=== PATIENT | male | born 1960 | race African-American/Black ===

== ENCOUNTER → 2016-09-19 | Outpatient (CLI) | payer MEDICARE, OTHER ==
--- NOTE | 2016-09-19 18:09 | CT ---
EXAMINATION TYPE: CT chest wo con DATE OF EXAM: 09/19/2016 2:31 PM COMPARISON: NONE HISTORY: Shortness of breath CT DLP: 566.10 mGycm, Automated exposure control for dose reduction was used. CONTRAST: None TECHNIQUE: Axial images were obtained at 1 mm thick sections at 10 mm intervals. This will limit po rtions of the examination which may not be visualized within the [id number]. Images were obtained in the prone and supine views. FINDINGS: Portion of the thyroid visualized is normal. No suspicious lung nodules or focal infiltrat es are present. There is a small to moderate right pleural effusion. No bronchiectasis is evident. No suspicious consolidations or chronic bronchitis. There appears to be some borderline lymphadenopathy within the mediastinum and pretracheal space tyler suring 1.0 cm. Additional adenopathy is suspected, however, due to the grainy artifact and lack of in travenous contrast this is somewhat limited in evaluation. Consider additional evaluation with standa rd CT chest with contrast. The ascending aorta diameter at the level of the main pulmonary artery is 4.4 cm. The main pulmonar y artery diameter at the bifurcation is 3.[address] sections are obtained through the upper abdomen. Upper abdomen is essentially nondiagnosti c due to artifact. IMPRESSIONS: 1. Enlarged mediastinal adenopathy felt to be incompletely evaluated. Contrast CT of the standard tiffanie st is recommended for additional evaluation. 2. Small to moderate right pleural effusion
== END | disposition home or self-care (01) ==
LOC: RADCTMAIN 14:09
PROVIDERS: ATTEND Internal Medicine
DX: J90 Pleural effusion, not elsewhere classified (principal)
CPT/HCPCS: 71250

== ENCOUNTER → 2016-10-04 | Outpatient (CLI) | payer MEDICARE, OTHER | END | disposition home or self-care (01) | LOC: RADPETMAIN 10:20 | PROVIDERS: ATTEND Internal Medicine | DX: Z53.9 Procedure and treatment not carried out, unspecified reason (principal) ==

== ENCOUNTER → 2016-10-21 | Outpatient (CLI) | payer MEDICARE, OTHER ==
[2016-10-21 16:27] LABS: Calcium 9.9 mg/dL (8.4-10.2); Magnesium 2.1 mg/dL (1.6-2.3); Phosphorous 3.7 mg/dL (2.5-4.5); Potassium 5.1 mmol/L (3.5-5.1); Uric Acid 11.8 mg/dL (3.5-8.5)
[2016-10-21 16:38] LABS: Anisocytosis Slight; Basophils # (A) 0.1 k/uL (0-0.2); Basophils % (A) 1 %; CH 23.4; CHCM 28.6; Eosinophils # (A) 0.3 k/uL (0-0.7); Eosinophils % (A) 4 %; HCT 37.3 % (39.0-53.0); HDW 3.23; Hypochromasia Marked; Luc # (Auto) 0.27; Luc % (Auto) 4; Lymphocytes # (A) 1.5 k/uL (1.0-4.8); Lymphocytes % (A) 22 %; MCH 24.2 pg (25.0-35.0); MCHC 29.4 g/dL (31.0-37.0); MCV 82.2 fL (80.0-100.0); Mean Platelet Volume 6.6; Monocytes # (A) 0.7 k/uL (0-1.0); Monocytes % (A) 10 %; Neutrophils # (A) 4.2 k/uL (1.3-7.7); Neutrophils % (A) 60 %; RBC 4.53 m/uL (4.30-5.90); RDW 17.9 % (11.5-15.5); WBC 7.1 k/uL (3.8-10.6); WBC (Perox) 7.25
[2016-10-21 17:33] LABS: Appearance,Urine Clear (Clear); Bilirubin,Urine Negative (Negative); Glucose,Urine (UA) Negative (Negative); Ketones,Urine Negative (Negative); Leukocyte Esterase,Urine Negative (Negative); Mucus,Urine Rare /hpf; Nitrite,Urine Negative (Negative); PH, Urine 5.5 (5.0-8.0); Particle Count 2302; Protein,Urine 1+ (Negative); RBC,Urine 1 /hpf (0-5); Specific Gravity,Urine 1.013 (1.001-1.035); UA Billing (MACRO vs. MICRO) MICRO; WBC,Urine 1 /hpf (0-5)
[2016-10-21 17:39] LABS: Creatinine,Urine Random 217.3 mg/dL
== END | disposition home or self-care (01) ==
LOC: LABWHC1 15:57
PROVIDERS: ATTEND Nurse Practitioner Family
DX: N18.3 Chronic kidney disease, stage 3 (moderate) (principal); N39.0 Urinary tract infection, site not specified; E83.39 Other disorders of phosphorus metabolism; R80.9 Proteinuria, unspecified
CPT/HCPCS: 36415; 80048; 81001; 82570; 82728; 83540; 83550; 83735; 84100; 84156; 84550; 85025

== ENCOUNTER → 2016-11-01 | Outpatient (CLI) | payer MEDICARE, OTHER | LOC: RADPETMAIN 07:04 | PROVIDERS: ATTEND Internal Medicine | DX: Z53.9 Procedure and treatment not carried out, unspecified reason (principal) ==

== ENCOUNTER → 2016-11-15 | Outpatient (CLI) | payer MEDICARE, OTHER ==
--- NOTE | 2016-11-15 17:44 | PE ---
EXAMINATION TYPE: PET CT fusion skull to thigh DATE OF EXAM: 11/15/2016 CLINICAL HISTORY: Right-sided lung cancer initial staging study per order TECHNIQUE: Following the intravenous administration of 15.87 mCi of F-18 FDG, whole body images are performed from the skull base to the midthigh. Images are reviewed on the computer in the coronal, axial, and sagittal planes. Reconstructed rotating images are created on independent workstation and reviewed on the computer. A non-contrast CT is performed in conjunction with the PET scan. COMPARISON: CT chest September 19, 2016. FINDINGS: Exam is suboptimal secondary to patient's large body habitus. SKULL BASE AND NECK: No suspicious hypermetabolic uptake is seen in the neck to suggest neck or supr aclavicular adenopathy. CHEST, MEDIASTINUM, AND HILAR REGION: No suspicious hypermetabolic uptake is seen in the thorax. There is redemonstration of significant cardiomegaly with global bilateral atrial and ventricular dil atation. There is background moderate emphysematous change with small right greater than left pleural effusion, right-sided effusion is diminished in size from prior. There are borderline prominent and slightly enlarged enlarged mediastinal lymph nodes, for reference right paratracheal lymph node measu res 1.5 x 1.2 cm on axial image 84 with minimal hypermetabolic uptake. There is prominent prevascular lymph node on axial image 73 with minimal hypermetabolic uptake. ABDOMEN AND PELVIS: No suspicious hypermetabolic uptake is seen in the abdomen or pelvis. OSSEOUS STRUCTURES: No suspicious hypermetabolic uptake is seen in the osseous structures. OTHER CT: There is multilevel spurring throughout the spine. There are disc herniations and facet art hropathy contributing to multilevel spinal canal stenosis. Dextroconvex scoliosis of thoracic spine i s seen. Sclerotic focus left C2 vertebra without abnormal hypermetabolic uptake is seen. Sclerosis ar eas in the cervical spine is felt to reflect product of degenerative change. Artifact related to patient's adjacent arms makes evaluation suboptimal. Main pulmonary artery is dilated at 4.0 cm on axial image 91, CT findings consistent with underlying pulmonary artery hypertension. Dependent density in gallbladder is consistent with small stones or gallbladder sludge. Infrarenal IVC filter is present. Scattered diverticula most prominent in left and sigmoid colon are noted. Prominent right-sided pelvic phlebolith is present on axial image 225. IMPRESSION: No suspicious hypermetabolic uptake is seen to suggest active malignancy. Slightly enlarg ed mediastinal lymph nodes show minimal increase uptake, max SUV is less than 3.5 making in nonneopla stic range. Does patient has biopsy-proven carcinoma?
== END | disposition home or self-care (01) ==
LOC: RADPETMAIN 14:18
PROVIDERS: ATTEND Internal Medicine
DX: R59.0 Localized enlarged lymph nodes (principal)
CPT/HCPCS: 78815; A9552

== ENCOUNTER → 2017-06-02 | Outpatient (CLI) | payer MEDICARE, OTHER ==
[2017-06-02 11:23] LABS: Anisocytosis Slight; Basophils # (A) 0.1 k/uL (0-0.2); Basophils % (A) 1 %; Eosinophils # (A) 0.5 k/uL (0-0.7); Eosinophils % (A) 8 %; HCT 43.6 % (39.0-53.0); HGB 13.5 gm/dL (13.0-17.5); Hypochromasia Slight; Lymphocytes % (A) 15 %; MCHC 30.9 g/dL (31.0-37.0); Macrocytosis Slight; Mean Platelet Volume 7.3; Monocytes # (A) 0.6 k/uL (0-1.0); Monocytes % (A) 8 %; Neutrophils # (A) 4.5 k/uL (1.3-7.7); Neutrophils % (A) 66 %; Platelet Count 183 k/uL (150-450); RDW 17.5 % (11.5-15.5); WBC 6.8 k/uL (3.8-10.6)
[2017-06-02 11:24] LABS: Appearance,Urine Clear (Clear); Bilirubin,Urine Negative (Negative); Blood,Urine Trace (Negative); Color,Urine Yellow; Glucose,Urine (UA) Negative (Negative); Hyaline Casts,Urine 14 /lpf (0-2); Ketones,Urine Negative (Negative); Leukocyte Esterase,Urine Negative (Negative); Mucus,Urine Rare /hpf; Nitrite,Urine Negative (Negative); Protein,Urine Trace (Negative); RBC,Urine 3 /hpf (0-5); Specific Gravity,Urine 1.008 (1.001-1.035); Squamous Epithelial Cell,Urine <1 /hpf (0-4); WBC,Urine 1 /hpf (0-5)
[2017-06-02 11:37] LABS: Magnesium 2.2 mg/dL (1.6-2.3); Phosphorus 4.3 mg/dL (2.5-4.5); Potassium 4.3 mmol/L (3.5-5.1); Uric Acid 5.8 mg/dL (3.5-8.5)
[2017-06-02 11:38] LABS: Creatinine,Urine Random 102.7 mg/dL
[2017-06-02 16:47] LABS: Iron Saturation 16.67 (15.00-50.00)
== END | disposition home or self-care (01) ==
LOC: LABWHC1 10:29
PROVIDERS: ATTEND Nurse Practitioner Family
DX: N18.3 Chronic kidney disease, stage 3 (moderate) (principal); R80.9 Proteinuria, unspecified
CPT/HCPCS: 36415; 80048; 81001; 82570; 82728; 83540; 83550; 83735; 84100; 84156; 84550; 85025

== ENCOUNTER → 2017-08-31 | Outpatient (CLI) | payer MEDICARE, OTHER ==
[2017-08-31 16:35] LABS: Anisocytosis Slight; Basophils % (A) 1 %; Eosinophils # (A) 0.3 k/uL (0-0.7); Eosinophils % (A) 5 %; HCT 42.4 % (39.0-53.0); HGB 13.2 gm/dL (13.0-17.5); Hypochromasia Slight; Lymphocytes # (A) 0.9 k/uL (1.0-4.8); Lymphocytes % (A) 15 %; MCH 30.3 pg (25.0-35.0); MCHC 31.1 g/dL (31.0-37.0); MCV 97.7 fL (80.0-100.0); Macrocytosis Slight; Mean Platelet Volume 8.2; Monocytes # (A) 0.5 k/uL (0-1.0); Monocytes % (A) 8 %; Neutrophils % (A) 70 %; Platelet Count 177 k/uL (150-450); RBC 4.35 m/uL (4.30-5.90); RDW 16.5 % (11.5-15.5); WBC 5.7 k/uL (3.8-10.6)
[2017-08-31 16:52] LABS: Albumin 4.1 g/dL (3.5-5.0); Calcium 9.8 mg/dL (8.4-10.2); Magnesium 2.6 mg/dL (1.6-2.3); Phosphorus 3.7 mg/dL (2.5-4.5); Potassium 5.3 mmol/L (3.5-5.1); Total Bilirubin 2.8 mg/dL (0.2-1.3); Total Protein 7.3 g/dL (6.3-8.2); Uric Acid 6.3 mg/dL (3.5-8.5)
[2017-09-01 00:48] LABS: Iron Saturation 16.25 (15.00-50.00)
[2017-09-01 00:58] LABS: Vitamin D 25 Hydroxy 38.2 ng/mL (30.0-100.0)
[2017-09-01 01:18] LABS: Parathyroid Hormone Intact 157.3 pg/mL (14.0-72.0)
== END | disposition home or self-care (01) ==
LOC: LABWHC1 15:53
PROVIDERS: ATTEND Nurse Practitioner Family
DX: N39.0 Urinary tract infection, site not specified (principal); M10.9 Gout, unspecified; D63.1 Anemia in chronic kidney disease; N18.3 Chronic kidney disease, stage 3 (moderate); E55.9 Vitamin D deficiency, unspecified; E21.3 Hyperparathyroidism, unspecified
CPT/HCPCS: 36415; 80053; 82306; 82728; 83540; 83550; 83735; 83970; 84100; 84550; 85025

== ENCOUNTER → 2017-10-22 | Outpatient (CLI) | payer MEDICARE, OTHER ==
[2017-10-22 13:40] LABS: Anisocytosis Slight; Basophils % (A) 0 %; Eosinophils # (A) 0.2 k/uL (0-0.7); Eosinophils % (A) 4 %; Lymphocytes # (A) 0.7 k/uL (1.0-4.8); Lymphocytes % (A) 12 %; MCH 31.6 pg (25.0-35.0); MCHC 31.8 g/dL (31.0-37.0); MCV 99.2 fL (80.0-100.0); Macrocytosis Slight; Mean Platelet Volume 6.8; Monocytes # (A) 0.4 k/uL (0-1.0); Monocytes % (A) 6 %; Neutrophils # (A) 4.5 k/uL (1.3-7.7); Neutrophils % (A) 76 %; Platelet Count 153 k/uL (150-450); RBC 4.44 m/uL (4.30-5.90); RDW 17.9 % (11.5-15.5)
[2017-10-22 13:46] LABS: Appearance,Urine Clear (Clear); Bilirubin,Urine Negative (Negative); Blood,Urine Moderate (Negative); Color,Urine Yellow; Glucose,Urine (UA) Negative (Negative); Hyaline Casts,Urine 4 /lpf (0-2); Ketones,Urine Negative (Negative); Leukocyte Esterase,Urine Negative (Negative); Nitrite,Urine Negative (Negative); PH, Urine 5.5 (5.0-8.0); Protein,Urine Trace (Negative); RBC,Urine 28 /hpf (0-5); Specific Gravity,Urine 1.008 (1.001-1.035); WBC,Urine 1 /hpf (0-5)
[2017-10-22 13:54] LABS: Albumin 4.2 g/dL (3.5-5.0); Calcium 9.2 mg/dL (8.4-10.2); Magnesium 2.2 mg/dL (1.6-2.3); Phosphorus 3.5 mg/dL (2.5-4.5); Potassium 4.1 mmol/L (3.5-5.1); Total Bilirubin 2.7 mg/dL (0.2-1.3); Total Protein 7.4 g/dL (6.3-8.2); Uric Acid 4.5 mg/dL (3.5-8.5)
[2017-10-22 18:56] LABS: Vitamin D 25 Hydroxy 27.3 ng/mL (30.0-100.0)
[2017-10-22 19:08] LABS: Iron Saturation 30.42 (15.00-50.00)
[2017-10-22 19:24] LABS: Parathyroid Hormone Intact 175.4 pg/mL (14.0-72.0)
== END | disposition home or self-care (01) ==
LOC: LABWHC1 13:12
PROVIDERS: ATTEND Nurse Practitioner Family
DX: N39.0 Urinary tract infection, site not specified (principal); M10.9 Gout, unspecified; E83.39 Other disorders of phosphorus metabolism; N18.3 Chronic kidney disease, stage 3 (moderate)
CPT/HCPCS: 36415; 80053; 81001; 82306; 82728; 83540; 83550; 83735; 83970; 84100; 84550; 85025

== ENCOUNTER → 2018-01-27 | Outpatient (CLI) | payer MEDICARE, OTHER ==
[2018-01-27 11:48] LABS: Basophils % (A) 1 %; Eosinophils # (A) 0.2 k/uL (0-0.7); Eosinophils % (A) 7 %; HCT 43.2 % (39.0-53.0); HGB 13.8 gm/dL (13.0-17.5); Lymphocytes % (A) 28 %; MCV 100.3 fL (80.0-100.0); Macrocytosis Slight; Mean Platelet Volume 7.6; Monocytes # (A) 0.4 k/uL (0-1.0); Monocytes % (A) 12 %; Neutrophils # (A) 1.8 k/uL (1.3-7.7); Neutrophils % (A) 50 %; Platelet Count 165 k/uL (150-450); RBC 4.31 m/uL (4.30-5.90); RDW 15.5 % (11.5-15.5); WBC 3.5 k/uL (3.8-10.6)
[2018-01-27 11:54] LABS: Albumin 4.1 g/dL (3.5-5.0); Calcium 9.1 mg/dL (8.4-10.2); Magnesium 2.1 mg/dL (1.6-2.3); Phosphorus 4.1 mg/dL (2.5-4.5); Potassium 4.5 mmol/L (3.5-5.1); Total Bilirubin 1.8 mg/dL (0.2-1.3); Total Protein 7.7 g/dL (6.3-8.2)
[2018-01-27 12:08] LABS: Appearance,Urine Clear (Clear); Bilirubin,Urine Negative (Negative); Blood,Urine Large (Negative); Color,Urine Yellow; Glucose,Urine (UA) Negative (Negative); Ketones,Urine Negative (Negative); Leukocyte Esterase,Urine Negative (Negative); Mucus,Urine Rare /hpf; Nitrite,Urine Negative (Negative); PH, Urine 5.5 (5.0-8.0); Protein,Urine 1+ (Negative); RBC,Urine 38 /hpf (0-5); WBC,Urine 1 /hpf (0-5)
[2018-01-27 18:13] LABS: Parathyroid Hormone Intact 171.2 pg/mL (14.0-72.0)
[2018-01-27 18:42] LABS: Iron Saturation 10.4 (15.00-50.00)
== END | disposition home or self-care (01) ==
LOC: LABWHC1 10:16
PROVIDERS: ATTEND Nurse Practitioner Family
DX: N18.3 Chronic kidney disease, stage 3 (moderate) (principal); D63.1 Anemia in chronic kidney disease; E55.9 Vitamin D deficiency, unspecified; E21.3 Hyperparathyroidism, unspecified; M10.9 Gout, unspecified; N39.0 Urinary tract infection, site not specified
CPT/HCPCS: 36415; 80053; 81001; 82728; 83540; 83550; 83735; 83970; 84100; 84550; 85025

== ENCOUNTER → 2018-09-07 | Outpatient (CLI) | payer MEDICARE, OTHER ==
[2018-09-07 11:55] LABS: Basophils # (A) 0.1 k/uL (0-0.2); Basophils % (A) 1 %; Eosinophils # (A) 0.4 k/uL (0-0.7); Eosinophils % (A) 5 %; HCT 48.2 % (39.0-53.0); HGB 15.3 gm/dL (13.0-17.5); Lymphocytes # (A) 1.3 k/uL (1.0-4.8); Lymphocytes % (A) 16 %; MCH 31.8 pg (25.0-35.0); MCHC 31.7 g/dL (31.0-37.0); MCV 100.3 fL (80.0-100.0); Macrocytosis Slight; Mean Platelet Volume 7.1; Monocytes # (A) 0.4 k/uL (0-1.0); Monocytes % (A) 5 %; Neutrophils # (A) 5.7 k/uL (1.3-7.7); Neutrophils % (A) 71 %; Platelet Count 160 k/uL (150-450); RBC 4.81 m/uL (4.30-5.90); RDW 15.4 % (11.5-15.5); WBC 8.1 k/uL (3.8-10.6)
[2018-09-07 12:22] LABS: Appearance,Urine Clear (Clear); Bilirubin,Urine Negative (Negative); Blood,Urine Trace (Negative); Color,Urine Yellow; Glucose,Urine (UA) Negative (Negative); Hyaline Casts,Urine 1 /lpf (0-2); Ketones,Urine Negative (Negative); Leukocyte Esterase,Urine Negative (Negative); Mucus,Urine Rare /hpf; Nitrite,Urine Negative (Negative); PH, Urine 5.5 (5.0-8.0); Protein,Urine 2+ (Negative); RBC,Urine 2 /hpf (0-5); Specific Gravity,Urine 1.009 (1.001-1.035); Urobilinogen,Urine <2.0 mg/dL (<2.0); WBC,Urine 1 /hpf (0-5)
[2018-09-07 16:56] LABS: Parathyroid Hormone Intact 168.7 pg/mL (14.0-72.0)
[2018-09-07 17:36] LABS: Iron Saturation 27.6 (15.00-50.00)
[2018-09-07 17:37] LABS: Anion Gap 9.4 mmol/L (4.00-12.00); Calcium 9.1 mg/dL (8.7-10.3); Carbon Dioxide 23.6 mmol/L (21.6-31.8); Phosphorus 3.9 mg/dL (2.4-5.1); Potassium 4.3 mmol/L (3.5-5.5); Uric Acid 3.7 mg/dL (3.7-8.7)
[2018-09-07 17:43] LABS: Vitamin D 25 Hydroxy 25.5 ng/mL (30.0-100.0)
[2018-09-07 17:59] LABS: Creatinine,Urine Random 52.5 mg/dL
[2018-09-07 18:04] LABS: Total Protein,Urine Random 119.4 mg/dL (0.0-13.5)
== END | disposition home or self-care (01) ==
LOC: LABWHC1 11:07
PROVIDERS: ATTEND Internal Medicine Nephrology
DX: E83.39 Other disorders of phosphorus metabolism (principal); N39.0 Urinary tract infection, site not specified; N25.81 Secondary hyperparathyroidism of renal origin; N18.3 Chronic kidney disease, stage 3 (moderate)
CPT/HCPCS: 36415; 80048; 81001; 82040; 82306; 82570; 82728; 83540; 83550; 83735; 83970; 84100; 84156; 84550; 85025

== ENCOUNTER → 2019-01-21 | Outpatient (CLI) | payer MEDICARE, OTHER ==
[2019-01-21 12:12] LABS: Basophils # (A) 0.2 k/uL (0-0.2); Basophils % (A) 2 %; Eosinophils # (A) 0.3 k/uL (0-0.7); Eosinophils % (A) 3 %; Lymphocytes # (A) 1.6 k/uL (1.0-4.8); Lymphocytes % (A) 16 %; MCH 32.4 pg (25.0-35.0); MCHC 33.4 g/dL (31.0-37.0); MCV 97.1 fL (80.0-100.0); Monocytes # (A) 0.7 k/uL (0-1.0); Monocytes % (A) 7 %; Neutrophils # (A) 7.3 k/uL (1.3-7.7); Neutrophils % (A) 71 %; Platelet Count 186 k/uL (150-450); RBC 4.63 m/uL (4.30-5.90); RDW 13.9 % (11.5-15.5); WBC 10.3 k/uL (3.8-10.6)
[2019-01-21 12:34] LABS: Appearance,Urine Clear (Clear); Bilirubin,Urine Negative (Negative); Blood,Urine Negative (Negative); Color,Urine Yellow; Glucose,Urine (UA) Negative (Negative); Ketones,Urine Negative (Negative); Leukocyte Esterase,Urine Negative (Negative); Mucus,Urine Rare /hpf; Nitrite,Urine Negative (Negative); PH, Urine 5.5 (5.0-8.0); Protein,Urine 1+ (Negative); RBC,Urine 1 /hpf (0-5); Specific Gravity,Urine 1.013 (1.001-1.035); Urobilinogen,Urine <2.0 mg/dL (<2.0); WBC,Urine 1 /hpf (0-5)
[2019-01-21 18:43] LABS: African American GFR (CKD) 35.5 (60.0-200.0); Albumin 4.6 g/dL (3.80-4.90); Anion Gap 11.1 mmol/L (4.00-12.00); BUN/Creat Ratio 20.87 Ratio (12.00-20.00); Calcium 9.8 mg/dL (8.7-10.3); Carbon Dioxide 20.9 mmol/L (21.6-31.8); Magnesium 2.1 mg/dL (1.5-2.4); Phosphorus 4.2 mg/dL (2.4-5.1); Uric Acid 7.4 mg/dL (3.7-8.7)
[2019-01-21 18:45] LABS: Iron Saturation 41.81 (15.00-50.00)
[2019-01-21 18:53] LABS: Vitamin D 25 Hydroxy 17.6 ng/mL (30.0-100.0)
[2019-01-21 19:40] LABS: Creatinine,Urine Random 115.2 mg/dL
[2019-01-21 19:42] LABS: Total Protein,Urine Random 48.7 mg/dL (0.0-13.5)
== END | disposition home or self-care (01) ==
LOC: LABWHC1 11:10
PROVIDERS: ATTEND Internal Medicine Nephrology
DX: N18.3 Chronic kidney disease, stage 3 (moderate) (principal); D50.9 Iron deficiency anemia, unspecified; N25.81 Secondary hyperparathyroidism of renal origin
CPT/HCPCS: 36415; 80048; 81001; 82040; 82306; 82570; 82728; 83540; 83550; 83735; 83970; 84100; 84156; 84550; 85025

== ENCOUNTER → 2019-04-06 | Outpatient (CLI) | payer MEDICARE, OTHER ==
[2019-04-06 21:35] LABS: Dog Dander IgE <0.10 kU/L
[2019-04-06 21:37] LABS: Alternaria alternata IgE <0.10 kU/L; Aspergillus fumagatus IgE <0.10 kU/L; Cladosporian herbarum IgE <0.10 kU/L; Cockroach IgE <0.10 kU/L
[2019-04-06 21:38] LABS: Birch IgE <0.10 kU/L; Elm IgE <0.10 kU/L; Maple (Box Elder) IgE <0.10 kU/L; Oak IgE <0.10 kU/L; Ragweed,Common IgE <0.10 kU/L
[2019-04-06 21:40] LABS: Red Top (Bentgrass) IgE <0.10 kU/L
[2019-04-06 21:41] LABS: Cat Epith & Dander IgE <0.10 kU/L; Dermato. farinae IgE 0.38 kU/L; Egg White IgE <0.10 kU/L
[2019-04-06 21:42] LABS: Codfish IgE <0.10 kU/L; Peanut IgE <0.10 kU/L
[2019-04-06 21:43] LABS: Clam IgE <0.10 kU/L; Shrimp IgE <0.10 kU/L; Soybean IgE <0.10 kU/L
[2019-04-06 21:44] LABS: Scallop IgE <0.10 kU/L; Walnut IgE (Food) <0.10 kU/L
== END | disposition home or self-care (01) ==
LOC: LABWHC1 12:43
PROVIDERS: ATTEND Family Medicine
DX: L30.9 Dermatitis, unspecified (principal); T78.40XA Allergy, unspecified, initial encounter
CPT/HCPCS: 36415; 82785; 86003

== ENCOUNTER → 2019-06-02 | Outpatient (CLI) | payer MEDICARE, OTHER ==
--- NOTE | 2019-06-02 13:44 | CT ---
EXAMINATION TYPE: CT abdomen pelvis wo con DATE OF EXAM: 06/02/2019 HISTORY: ascites per order. Pain and swelling for [address] DLP: 1126 mGycm. Automated Exposure Control for Dose Reduction was Utilized. TECHNIQUE: CT scan of the abdomen and pelvis is performed without oral or IV contrast. COMPARISON: Head CT November 15, 2016 FINDINGS: Within the limitations of a non-contrast study, the following observations are made. LUNG BASES: Patchy linear scarring and/or atelectasis in both bases. Mild cardiomegaly redemonstrated . LIVER/GB: Small dependent calcified gallstone now identified. Liver is heterogeneous without definiti ve mass. Occasional punctate calcification. PANCREAS: No significant abnormality is seen. SPLEEN: Scattered punctate calcifications throughout the spleen. Liver and splenic findings are consi stent with product of old granulomatous disease. ADRENALS: No significant abnormality is seen. KIDNEYS: Cortical thinning in both kidneys. Scattered simple appearing thin-walled cyst. No hydroneph rosis bilaterally. Findings consistent with product of chronic medical renal disease. BOWEL: Suboptimal evaluation of bowel without enteric contrast. Stomach poorly distended and thus sub optimally evaluated. No suspicious small and large bowel dilatation. Diverticula throughout left and sigmoid colon with occasional diverticula remainder of colon. No CT evidence for acute diverticulitis . GENITAL ORGANS: Prostate gland mildly enlarged bulging and bladder base consistent with BPH. LYMPH NODES: No greater than 1cm abdominal or pelvic lymph nodes are appreciated. OSSEOUS STRUCTURES: Moderate disc space narrowing and vacuum disc phenomenon L4-L5 level. Persistent levoconvex scoliosis centered lower thoracic spine. Multilevel facet arthropathy in the mid to lower lumbar spine. OTHER: Small sized fat-containing umbilical hernia near vertical scar midline mid to lower abdomen. S table infrarenal IVC filter. Mild to moderate calcified plaque of the aorta extends into branch vesse ls. There is suspected trace ascites and/or mild fat stranding in the lower abdomen just anterior to aortic bifurcation. Large left-sided scrotal hydrocele noted. IMPRESSION: 1. No significant ascites on current study with improvement from 2017 PET/CT noted. 2. Other chronic findings as detailed above.
== END | disposition home or self-care (01) ==
LOC: RADCTMAIN 11:59
PROVIDERS: ATTEND Family Medicine
DX: K80.20 Calculus of gallbladder without cholecystitis without obstruction (principal); K76.89 Other specified diseases of liver; K31.89 Other diseases of stomach and duodenum; K57.32 Diverticulitis of large intestine without perforation or abscess without bleeding; N40.0 Benign prostatic hyperplasia without lower urinary tract symptoms; R18.8 Other ascites; K42.9 Umbilical hernia without obstruction or gangrene; N43.3 Hydrocele, unspecified
CPT/HCPCS: 74176

== ENCOUNTER 2020-02-03 22:29 | Emergency (ER) | payer MEDICARE, OTHER ==
[2020-02-03 22:55] VITALS: TEMP 99.3
--- NOTE | 2020-02-03 23:26 | ED ---
SOB HPI - General Chief Complaint: Shortness of Breath Stated Complaint: MILAD - COPD, CHF Time Seen by Provider: 02/03/20 22:58 Source: patient, family Mode of arrival: wheelchair Limitations: no limitations - History of Present Illness Initial Comments: This patient's 59-year-old man who presents with a couple of days of cough and dyspnea. The patient has history of CHF and of COPD. He believes that this feels more consistent with his COPD exacerbation. Patient denies fever or chills. No chest pain. No leg pain or swelling. No change in urination or bowel movements. No dark tarry or bloody stools. MD Complaint: shortness of breath, cough -: days(s) Severity scale (1-10): 0 Improves With: nothing Worsens With: nothing Known History Of: COPD, congestive heart failure Associated Symptoms: denies other symptoms, cough Treatments Prior to Arrival: bronchodilator - Related Data Home Oxygen Therapy: No Home Medications Medication Instructions Recorded Confirmed Cinacalcet [Sensipar] 30 mg PO TUFR 04/02/15 03/02/18 Furosemide [Lasix] 80 mg PO DAILY 04/02/15 03/02/18 allopurinoL [Zyloprim] 300 mg PO DAILY 04/02/15 03/02/18 Albuterol Nebulized (Conc) 2.5 mg INHALATION QID 12/04/16 03/02/18 [Ventolin Nebulized (Conc)] Aspirin [Adult Low Dose Aspirin EC] 81 mg PO DAILY 12/04/16 03/02/18 Gabapentin [Neurontin] 300 mg PO DAILY 12/04/16 03/02/18 Loratadine [Claritin] 10 mg PO DAILY PRN 12/04/16 03/02/18 Beclomethasone Dipropionate [Qvar 1 puff BID 03/13/17 03/02/18 80 mcg] Cinacalcet HCl [Sensipar] 30 mg PO DIRECTED 03/13/17 03/02/18 Fluticasone Nasal Jackman [Flonase 1 spray NASAL DIRECTED PRN 03/13/17 03/02/18 Nasal Jackman] HYDROcodone/APAP 10-325MG [[place] 1 tab PO QID 03/13/17 03/02/18 10-325] Previous Rx's Medication Instructions Recorded Azithromycin [Zithromax Z-pack (6 250 mg PO DIRECTED #6 tab 02/04/20 tabs)] predniSONE [Deltasone] 20 mg PO BID #8 tab 02/04/20 Allergies Allergy/AdvReac Type Severity Reaction Status Date / Time propoxyphene napsylate Allergy Abdominal Verified 02/03/20 22:55 [From Darvocet-N 100] Pain Review of Systems ROS Statement: Those systems with pertinent positive or pertinent negative responses have been documented in the HPI. ROS Other: All systems not noted in ROS Statement are negative. Constitutional: Denies: fever, chills, weakness Respiratory: Reports: cough, dyspnea. Denies: wheezes Cardiovascular: Denies: chest pain, palpitations, orthopnea, edema, syncope Gastrointestinal: Denies: abdominal pain, nausea, vomiting Genitourinary: Denies: dysuria, hematuria Musculoskeletal: Denies: back pain Skin: Denies: rash Neurological: Denies: headache, weakness, numbness Past Medical History Past Medical History: Heart Failure, COPD, Deep Vein Thrombosis (DVT), GERD/Reflux, Hypertension, Pneumonia, Renal Disease, Sleep Apnea/CPAP/BIPAP Additional Past Medical History / Comment(s): RETRO PERITONEAL FIBROSIS, HX OF DVT 2002, GOUT, SLEEP APNEA- NO MACHINE AT THIS TIME., STATES PNEUMONIA SINCE MARCH 2016- WEARS OXYGEN AT 2 LITERS. , STATES LEFT KIDNEY NOT FUNCTIONING, RIGHT KIDNEY STENT. STATES CYSTS ON KIDNEYS. (SEES DR SINGH) , BACK PAIN. , USES CANE. History of Any Multi-Drug Resistant Organisms: None Reported Past Surgical History: Joint Replacement Additional Past Surgical History / Comment(s): TOTAL LEFT KNEE, SERA FILTER (RIGHT GROIN) Past Anesthesia/Blood Transfusion Reactions: No Reported Reaction Past Psychological History: Anxiety Smoking Status: Never smoker Past Alcohol Use History: None Reported Past Drug Use History: None Reported - Past Family History Mother Family Medical History: No Reported History General Exam Limitations: no limitations General appearance: alert, in no apparent distress Head exam: Present: atraumatic, normocephalic Eye exam: Present: normal appearance. Absent: scleral icterus, conjunctival injection ENT exam: Present: normal oropharynx Neck exam: Present: normal inspection Respiratory exam: Present: wheezes, rhonchi. Absent: respiratory distress, rales, stridor Cardiovascular Exam: Present: regular rate, normal rhythm, normal heart sounds. Absent: systolic murmur, diastolic murmur, rubs, gallop GI/Abdominal exam: Present: soft. Absent: distended, tenderness, guarding, rebound, rigid Extremities exam: Present: normal inspection, normal capillary refill. Absent: pedal edema, calf tenderness Back exam: Present: normal inspection. Absent: CVA tenderness (R), CVA tenderness (L) Neurological exam: Present: alert Skin exam: Present: warm, dry, intact, normal color. Absent: rash Course Vital Signs 02/03/20 02/03/20 02/04/20 22:51 23:15 00:00 Temperature 99.3 F Pulse Rate 61 81 Respiratory 34 H 22 16 Rate Blood Pressure 109/69 124/77 O2 Sat by Pulse 98 100 Oximetry 02/04/20 02/04/20 01:00 02:00 Temperature Pulse Rate 92 90 Respiratory 18 18 Rate Blood Pressure 128/79 117/75 O2 Sat by Pulse 98 98 Oximetry Medical Decision Making - Medical Decision Making Patient's 59 -year-old man presenting with cough and dyspnea. Workup here does reveal leukocytosis and mild lactic acid. Patient started on medication I was recommending admission to ensure that he is having improvement, the patient refuses that and states that he will follow-up. He will return should there be any recurrence of symptoms are worsening in anyway. Patient understands there is risks of leaving. - Lab Data Result diagrams: 02/03/20 23:21 02/03/20 23:21 Lab Results 02/03/20 02/03/20 02/03/20 Range/Units 23:21 23:21 23:21 WBC 17.6 H (3.8-10.6) k/uL RBC 4.55 (4.30-5.90) m/uL Hgb 14.0 (13.0-17.5) gm/dL Hct 43.4 (39.0-53.0) % MCV 95.3 (80.0-100.0) fL MCH 30.7 (25.0-35.0) pg MCHC 32.2 (31.0-37.0) g/dL RDW 14.7 (11.5-15.5) % Plt Count 185 (150-450) k/uL Neutrophils % 88 % Lymphocytes % 5 % Monocytes % 5 % Eosinophils % 1 % Basophils % 0 % Neutrophils # 15.6 H (1.3-7.7) k/uL Lymphocytes # 0.9 L (1.0-4.8) k/uL Monocytes # 0.8 (0-1.0) k/uL Eosinophils # 0.2 (0-0.7) k/uL Basophils # 0.0 (0-0.2) k/uL PT 11.8 (9.0-12.0) sec INR 1.2 H (<1.2) APTT 34.5 H (22.0-30.0) sec Sodium 133 L (137-145) mmol/L Potassium 5.2 H (3.5-5.1) mmol/L Chloride 104 (98-107) mmol/L Carbon Dioxide 20 L (22-30) mmol/L Anion Gap 9 mmol/L BUN 32 H (9-20) mg/dL Creatinine 2.60 H (0.66-1.25) mg/dL Est GFR (CKD-EPI)AfAm 30 (>60 ml/min/1.73 sqM) Est GFR (CKD-EPI)NonAf 26 (>60 ml/min/1.73 sqM) Glucose 133 H (74-99) mg/dL Lactic Ac Sepsis Rflx Plasma Lactic Acid Hakeem (0.7-2.0) mmol/L Calcium 9.8 (8.4-10.2) mg/dL Total Bilirubin 1.4 H (0.2-1.3) mg/dL AST 26 (17-59) U/L ALT 15 (4-49) U/L Alkaline Phosphatase 79 (38-126) U/L Troponin I (0.000-0.034) ng/mL NT-Pro-B Natriuret Pep pg/mL Total Protein 7.5 (6.3-8.2) g/dL Albumin 4.3 (3.5-5.0) g/dL Urine Color Urine Appearance (Clear) Urine pH (5.0-8.0) Ur Specific [place] (1.001-1.035) Urine Protein (Negative) Urine Glucose (UA) (Negative) Urine Ketones (Negative) Urine Blood (Negative) Urine Nitrite (Negative) Urine Bilirubin (Negative) Urine Urobilinogen (<2.0) mg/dL Ur Leukocyte Esterase (Negative) Serum Alcohol mg/dL 02/03/20 02/03/20 02/03/20 Range/Units 23:21 23:21 23:21 WBC (3.8-10.6) k/uL RBC (4.30-5.90) m/uL Hgb (13.0-17.5) gm/dL Hct (39.0-53.0) % MCV (80.0-100.0) fL MCH (25.0-35.0) pg MCHC (31.0-37.0) g/dL RDW (11.5-15.5) % Plt Count (150-450) k/uL Neutrophils % % Lymphocytes % % Monocytes % % Eosinophils % % Basophils % % Neutrophils # (1.3-7.7) k/uL Lymphocytes # (1.0-4.8) k/uL Monocytes # (0-1.0) k/uL Eosinophils # (0-0.7) k/uL Basophils # (0-0.2) k/uL PT (9.0-12.0) sec INR (<1.2) APTT (22.0-30.0) sec Sodium (137-145) mmol/L Potassium (3.5-5.1) mmol/L Chloride (98-107) mmol/L Carbon Dioxide (22-30) mmol/L Anion Gap mmol/L BUN (9-20) mg/dL Creatinine (0.66-1.25) mg/dL Est GFR (CKD-EPI)AfAm (>60 ml/min/1.73 sqM) Est GFR (CKD-EPI)NonAf (>60 ml/min/1.73 sqM) Glucose (74-99) mg/dL Lactic Ac Sepsis Rflx Plasma Lactic Acid Hakeem 2.8 H* (0.7-2.0) mmol/L Calcium (8.4-10.2) mg/dL Total Bilirubin (0.2-1.3) mg/dL AST (17-59) U/L ALT (4-49) U/L Alkaline Phosphatase (38-126) U/L Troponin I 0.025 (0.000-0.034) ng/mL NT-Pro-B Natriuret Pep 1720 pg/mL Total Protein (6.3-8.2) g/dL Albumin (3.5-5.0) g/dL Urine Color Urine Appearance (Clear) Urine pH (5.0-8.0) Ur Specific [place] (1.001-1.035) Urine Protein (Negative) Urine Glucose (UA) (Negative) Urine Ketones (Negative) Urine Blood (Negative) Urine Nitrite (Negative) Urine Bilirubin (Negative) Urine Urobilinogen (<2.0) mg/dL Ur Leukocyte Esterase (Negative) Serum Alcohol mg/dL 02/04/20 02/04/20 02/04/20 Range/Units 00:03 00:13 01:30 WBC (3.8-10.6) k/uL RBC (4.30-5.90) m/uL Hgb (13.0-17.5) gm/dL Hct (39.0-53.0) % MCV (80.0-100.0) fL MCH (25.0-35.0) pg MCHC (31.0-37.0) g/dL RDW (11.5-15.5) % Plt Count (150-450) k/uL Neutrophils % % Lymphocytes % % Monocytes % % Eosinophils % % Basophils % % Neutrophils # (1.3-7.7) k/uL Lymphocytes # (1.0-4.8) k/uL Monocytes # (0-1.0) k/uL Eosinophils # (0-0.7) k/uL Basophils # (0-0.2) k/uL PT (9.0-12.0) sec INR (<1.2) APTT (22.0-30.0) sec Sodium (137-145) mmol/L Potassium (3.5-5.1) mmol/L Chloride (98-107) mmol/L Carbon Dioxide (22-30) mmol/L Anion Gap mmol/L BUN (9-20) mg/dL Creatinine (0.66-1.25) mg/dL Est GFR (CKD-EPI)AfAm (>60 ml/min/1.73 sqM) Est GFR (CKD-EPI)NonAf (>60 ml/min/1.73 sqM) Glucose (74-99) mg/dL Lactic Ac Sepsis Rflx Y Plasma Lactic Acid Hakeem (0.7-2.0) mmol/L Calcium (8.4-10.2) mg/dL Total Bilirubin (0.2-1.3) mg/dL AST (17-59) U/L ALT (4-49) U/L Alkaline Phosphatase (38-126) U/L Troponin I (0.000-0.034) ng/mL NT-Pro-B Natriuret Pep pg/mL Total Protein (6.3-8.2) g/dL Albumin (3.5-5.0) g/dL Urine Color Yellow Urine Appearance Clear (Clear) Urine pH 5.5 (5.0-8.0) Ur Specific [place] 1.015 (1.001-1.035) Urine Protein Trace H (Negative) Urine Glucose (UA) Negative (Negative) Urine Ketones Negative (Negative) Urine Blood Negative (Negative) Urine Nitrite Negative (Negative) Urine Bilirubin Negative (Negative) Urine Urobilinogen <2.0 (<2.0) mg/dL Ur Leukocyte Esterase Negative (Negative) Serum Alcohol <10 mg/dL - EKG Data -: EKG Interpreted by [facility] EKG shows normal: axis (Normal), intervals (Normal), QRS complexes (Normal) Interpretation: nonspecific ST-T wave changes, other (Underlying rhythm appears to be atrial flutter with 31 conduction.) Disposition Clinical Impression: COPD exacerbation Disposition: Left Against Medical Advice Condition: Fair Instructions (If sedation given, give patient instructions): COPD (Chronic Obstructive Pulmonary Disease) (ED) Prescriptions: predniSONE [Deltasone] 20 mg PO BID #8 tab Azithromycin [Zithromax Z-pack (6 tabs)] 250 mg PO DIRECTED #6 tab Is patient prescribed a controlled substance at d/c from ED?: No Referrals: Ryan Roman MD [Primary Care Provider] - 1-2 days
[2020-02-03 23:39] LABS: Basophils % (A) 0 %; Eosinophils # (A) 0.2 k/uL (0-0.7); Eosinophils % (A) 1 %; HCT 43.4 % (39.0-53.0); Lymphocytes # (A) 0.9 k/uL (1.0-4.8); Lymphocytes % (A) 5 %; MCH 30.7 pg (25.0-35.0); MCHC 32.2 g/dL (31.0-37.0); MCV 95.3 fL (80.0-100.0); Mean Platelet Volume 7.3; Monocytes # (A) 0.8 k/uL (0-1.0); Monocytes % (A) 5 %; Neutrophils # (A) 15.6 k/uL (1.3-7.7); Neutrophils % (A) 88 %; Platelet Count 185 k/uL (150-450); RBC 4.55 m/uL (4.30-5.90); RDW 14.7 % (11.5-15.5); WBC 17.6 k/uL (3.8-10.6)
--- NOTE | 2020-02-03 23:46 | XR ---
EXAMINATION TYPE: XR chest 2V DATE OF EXAM: 02/03/2020 COMPARISON: 08/10/2014 HISTORY: Difficulty breathing TECHNIQUE: FINDINGS: Heart is normal. Lungs are clear. Diaphragm is normal. There is mild thoracic dextroscolios is. There are chest leads. Costophrenic angles are clear. IMPRESSION: No active cardiopulmonary disease. No change.
[2020-02-03 23:54] LABS: INR 1.2 (<1.2); Partial Thromboplastin Time 34.5 sec (22.0-30.0); Prothrombin Time 11.8 sec (9.0-12.0)
[2020-02-04 00:04] LABS: Albumin 4.3 g/dL (3.5-5.0); Calcium 9.8 mg/dL (8.4-10.2); Total Bilirubin 1.4 mg/dL (0.2-1.3); Total Protein 7.5 g/dL (6.3-8.2)
[2020-02-04 00:17] LABS: Potassium 5.2 mmol/L (3.5-5.1)
[2020-02-04 02:07] LABS: Appearance,Urine Clear (Clear); Bilirubin,Urine Negative (Negative); Blood,Urine Negative (Negative); Color,Urine Yellow; Glucose,Urine (UA) Negative (Negative); Ketones,Urine Negative (Negative); Leukocyte Esterase,Urine Negative (Negative); Nitrite,Urine Negative (Negative); PH, Urine 5.5 (5.0-8.0); Protein,Urine Trace (Negative); Specific Gravity,Urine 1.015 (1.001-1.035); Urobilinogen,Urine <2.0 mg/dL (<2.0)
[2020-02-04 02:15] VITALS: BP 117/75; PULSE 90; RESP 18
[2020-02-04] MEDS ORDERED: predniSONE 20 MG TAB PO STA (02:16)
[2020-02-04] MEDS ORDERED: AZITHROMYCIN 500 MG TAB PO STA (02:17)
== END 2020-02-04 02:30 | disposition left against medical advice (07) ==
LOC: EC 22:29
DX: J44.1 Chronic obstructive pulmonary disease with (acute) exacerbation (principal); D72.829 Elevated white blood cell count, unspecified; I11.0 Hypertensive heart disease with heart failure; I50.9 Heart failure, unspecified; M10.9 Gout, unspecified; M54.9 Dorsalgia, unspecified; F41.9 Anxiety disorder, unspecified; Z79.82 Long term (current) use of aspirin; Z79.899 Other long term (current) drug therapy; Z79.51 Long term (current) use of inhaled steroids; Z88.5 Allergy status to narcotic agent; Z86.718 Personal history of other venous thrombosis and embolism; Z96.60 Presence of unspecified orthopedic joint implant; Z53.29 Procedure and treatment not carried out because of patient's decision for other reasons
CPT/HCPCS: 36415 ×2; 93005; 83880; 80053; 83605; 84484; 85025; 85610; 85730; 81003; 71046; 99285; G0480; J7512; 80320

== ENCOUNTER 2020-08-24 08:27 | Day surgery (SDC) | payer MEDICARE, OTHER ==
[2020-08-21 15:59] VITALS: BMI 38.9
[~2020-08-24 08:27] MED LIST: ACETAMINOPHEN TAB 500 MG TAB PO PRN; DEXAMETHASONE SOD PHOSPHATE 4 MG/ML 1 ML VIAL IV ONE; HEPARIN SODIUM,PORCINE/PF 5,000 UNIT/0.5 ML SYRINGE SQ PRN; HYDROmorphone 0.5 MG/0.5 ML SYRINGE IVP PRN; LACTATED RINGERS 1,000 ML IV SCH; MIDAZOLAM 2 MG/2 ML VIAL IV PRN; ONDANSETRON 4 MG/2 ML VIAL IVP ONE; SCOPOLAMINE 1.5MG/72HR PATCH TRANSDERM ONE; ceFAZolin 3 GM in SODIUM CHLORIDE 0.9% 100 ML IVPB PRN
[2020-08-24] MEDS ORDERED: LIDOCAINE 1% (10MG/ML) FOR IV START INTRADERMA ONE (08:58)
[2020-08-24] MEDS ORDERED: METOPROLOL TARTRATE 12.5 MG TAB PO STA (09:46)
--- NOTE | 2020-08-24 10:06 | P.GSHP ---
History of Present Illness H&P Date: 08/24/20 Chief Complaint: Right upper quadrant pain This a 59-year-old male who's had complete the right upper quadrant pain. Patient rents today for laparoscopic cholecystectomy. He has gallstones on workup. Past Medical History Past Medical History: Heart Failure, COPD, Deep Vein Thrombosis (DVT), GERD/Reflux, Hyperlipidemia, Hypertension, Pneumonia, Renal Disease, Sleep Apnea/CPAP/BIPAP Additional Past Medical History / Comment(s): RETRO PERITONEAL FIBROSIS, HX OF DVT 2002, GOUT, SLEEP APNEA- NO MACHINE AT THIS TIME., STATES , STATES LEFT KIDNEY NOT FUNCTIONING, RIGHT KIDNEY STENT. BACK PAIN. , History of Any Multi-Drug Resistant Organisms: None Reported Past Surgical History: Joint Replacement Additional Past Surgical History / Comment(s): TOTAL LEFT KNEE, SERA FILTER (RIGHT GROIN), Past Anesthesia/Blood Transfusion Reactions: No Reported Reaction Smoking Status: Former smoker - Past Family History Mother Family Medical History: No Reported History Medications and Allergies Home Medications Medication Instructions Recorded Confirmed Type Furosemide [Lasix] 80 mg PO DAILY 04/02/15 08/24/20 History Atorvastatin [Lipitor] 40 mg PO W/LUNCH 08/21/20 08/24/20 History Losartan Potassium 50 mg PO DAILY 08/21/20 08/24/20 History Metoprolol Tartrate [Lopressor] 12.5 mg PO DAILY 08/21/20 08/24/20 History Rivaroxaban [Xarelto] 20 mg PO DAILY 08/21/20 08/24/20 History Spironolactone [Aldactone] 25 mg PO DAILY 08/21/20 08/24/20 History ALPRAZolam [Xanax] 2 mg PO TID 08/22/20 08/24/20 History HYDROcodone/APAP 10-325MG [[place] 1 tab PO TID PRN 08/22/20 08/24/20 History 10-325] Allergies Allergy/AdvReac Type Severity Reaction Status Date / Time propoxyphene napsylate Allergy Abdominal Verified 08/24/20 08:56 [From Rodyt-N 100] Pain Surgical - Exam Vital Signs Temp Pulse Resp BP Pulse Ox 96.9 F L 80 18 129/79 99 08/24/20 08:50 08/24/20 08:50 08/24/20 08:50 08/24/20 08:50 08/24/20 08:50 - General well developed, well nourished, no distress - Eyes PERRL - ENT normal pinna - Neck no masses - Respiratory normal expansion - Cardiovascular Rhythm: regular - Abdomen Abdomen: soft, non tender Assessment and Plan Assessment: Cholelithiasis Right upper quadrant pain We'll perform laparoscopic cholecystectomy
[2020-08-24] MEDS ORDERED: KETOROLAC 15 MG/ML 1 ML VIAL ONE (10:21)
[2020-08-24] MEDS ORDERED: GLYCOPYRROLATE 0.2 MG/ML 2 ML VIAL ONE (10:21)
[2020-08-24] MEDS ORDERED: MIDAZOLAM 2 MG/2 ML VIAL ONE (10:21)
[2020-08-24] MEDS ORDERED: NEOSTIGMINE 1 MG/ML 10 ML VIAL ONE (10:21)
[2020-08-24] MEDS ORDERED: SUCCINYLCHOLINE CHLORIDE 100 MG/5 ML SYR IV ONE (10:21)
[2020-08-24] MEDS ORDERED: LIDOCAINE 1% INJ 10MG/ML (20 ML MDV) ONE (10:21)
[2020-08-24] MEDS ORDERED: fentaNYL (PF) 50 MCG/ML 2 ML AMP ONE (10:21)
[2020-08-24] MEDS ORDERED: PROPOFOL 10 MG/ML 20 ML VIAL IV ONE (10:21)
[2020-08-24] MEDS ORDERED: HYDROmorphone (PF) 1 MG/ML ONE (10:21)
[2020-08-24] MEDS ORDERED: ROCURONIUM 10 MG/ML (5 ML VIAL) IV ONE (10:21)
[2020-08-24 10:24] LABS: Basophils # (A) 0.1 k/uL (0-0.2); Basophils % (A) 1 %; Eosinophils # (A) 0.7 k/uL (0-0.7); Eosinophils % (A) 8 %; HCT 40.2 % (39.0-53.0); HGB 13.9 gm/dL (13.0-17.5); Lymphocytes # (A) 2.2 k/uL (1.0-4.8); Lymphocytes % (A) 25 %; MCH 33.3 pg (25.0-35.0); MCHC 34.5 g/dL (31.0-37.0); MCV 96.3 fL (80.0-100.0); Mean Platelet Volume 7.1; Monocytes # (A) 0.5 k/uL (0-1.0); Monocytes % (A) 6 %; Neutrophils % (A) 59 %; Platelet Count 164 k/uL (150-450); RBC 4.18 m/uL (4.30-5.90); RDW 14.2 % (11.5-15.5); WBC 8.5 k/uL (3.8-10.6)
[2020-08-24 10:35] LABS: Albumin 4.1 g/dL (3.5-5.0); Calcium 9.2 mg/dL (8.4-10.2); Potassium 5.4 mmol/L (3.5-5.1); Total Bilirubin 0.7 mg/dL (0.2-1.3); Total Protein 7.2 g/dL (6.3-8.2)
[2020-08-24] MEDS ORDERED: BUPIVACAINE (PF) 0.25% 30 ML VIAL SQ ONE (10:54)
[2020-08-24 11:36] VITALS: TEMP 98
--- NOTE | 2020-08-24 11:36 | P.OP ---
Date of Procedure: 08/24/20 Preoperative Diagnosis: Cholelithiasis Postoperative Diagnosis: Cholelithiasis Procedure(s) Performed: Laparoscopic Cholecystectomy Anesthesia: ANDREA Surgeon: Polo Shoemaker Estimated Blood Loss (ml): 5 Pathology: other (gAll bladder) Condition: stable Disposition: PACU Operative Findings: The patient was placed on the operating table. The patient received a general endotracheal tube anesthesia. The patients abdomen was prepped and draped in the usual sterile fashion. Through an infraumbilical stab incision, the fascia of the anterior abdominal wall was grasped with a pair of Kochers and then the Veress needle was placed in the peritoneal cavity. Position of the Veress needle was confirmed with positive drop test. The abdomen was then insufflated. After adequate insufflation, the 10 mm trocar was placed in the peritoneal cavity. Following this the laparoscope was placed in the peritoneal cavity. The patient was placed in the head-up, right side up position and then a 5 mm trocar was placed in the right lateral and right subcostal position under direct visualization. A 8 mm trocar was placed in the epigastric position. The gallbladder was grasped in the fundus and infundibulum. Traction on the gallbladder was placed in the lateral and the cephalad positions. The triangle of Calot was visualized.. The cystic duct was bluntly dissected until the union of the cystic duct and common bile duct was seen. A critical view of safety was achieved. The cystic duct was then divided and sealed with the Harmonic scissors. A PDS Endoloop was then placed throughout the cystic duct stump. The cystic artery divided and sealed with the Harmonic scissors. The gallbladder was then removed from the liver bed using Harmonic scissors. The gallbladder was then extracted through the epigastric port site. Operative field was checked for any bleeding spots and Harmonic scissors was used to coagulate the liver bed. The abdomen was irrigated. The trocars were removed. The skin was closed using interrupted 3-0 Vicryl suture. Dermabond dressing were applied. The patient tolerated the procedure well.
[2020-08-24 12:20] VITALS: RESP 18
[2020-08-24 12:49] VITALS: PULSE 74
[2020-08-24 12:50] VITALS: BP 120/74
== END 2020-08-24 13:28 | disposition home or self-care (01) ==
LOC: OR 08:27
PROVIDERS: ATTEND Surgery
DX: K80.10 Calculus of gallbladder with chronic cholecystitis without obstruction (principal); J44.9 Chronic obstructive pulmonary disease, unspecified; E78.5 Hyperlipidemia, unspecified; I11.0 Hypertensive heart disease with heart failure; I50.9 Heart failure, unspecified; Z86.718 Personal history of other venous thrombosis and embolism; K21.9 Gastro-esophageal reflux disease without esophagitis; I48.91 Unspecified atrial fibrillation; F41.9 Anxiety disorder, unspecified; N28.9 Disorder of kidney and ureter, unspecified; G47.33 Obstructive sleep apnea (adult) (pediatric); M10.9 Gout, unspecified; M54.9 Dorsalgia, unspecified; Z87.01 Personal history of pneumonia (recurrent); Z96.652 Presence of left artificial knee joint; Z95.828 Presence of other vascular implants and grafts; Z87.891 Personal history of nicotine dependence; Z79.01 Long term (current) use of anticoagulants; Z79.899 Other long term (current) drug therapy; Z88.5 Allergy status to narcotic agent
CPT/HCPCS: 88304; 80053; 85025; 47562; J2250; J1100; J2710; J0690; J2405; J2001; J3010; J1170; J1885; J0330; J2704; J1644

== ENCOUNTER → 2020-10-17 | Outpatient (CLI) | payer MEDICARE, OTHER ==
[2020-10-17 17:38] LABS: Basophils # (A) 0.06 X 10*3/uL (0.00-0.10); Basophils % (A) 0.6 %; Eosinophils # (A) 0.76 X 10*3/uL (0.04-0.35); Eosinophils % (A) 7.3 %; HCT 43.4 % (39.6-50.0); HGB 14.3 g/dL (13.0-17.0); Lymphocytes # (A) 1.77 X 10*3/uL (0.90-5.00); Lymphocytes % (A) 17.1 %; MCH 32.5 pg (27.0-32.0); MCHC 32.9 g/dL (32.0-37.0); MCV 98.6 fL (80.0-97.0); Mean Platelet Volume 10.3 fL (9.5-12.2); Monocytes # (A) 0.96 X 10*3/uL (0.20-1.00); Monocytes % (A) 9.3 %; Neutrophils # (A) 6.72 X 10*3/uL (1.80-7.70); Neutrophils % (A) 64.9 %; Platelet Count 235 X 10*3/uL (140-440); RDW 13.5 % (11.5-14.5); WBC 10.35 X 10*3/uL (4.50-10.00)
[2020-10-17 19:18] LABS: Erythrocyte Sedimentation Rate 33 mm/Hr (0-20)
[2020-10-17 20:43] LABS: Anti-Smith Ab Interp NEGATIVE (NEGATIVE)
[2020-10-17 23:46] LABS: Carcinoembryonic Antigen <0.5 ng/mL (0.0-4.9); Ferritin 393.5 ng/mL (22.0-322.0)
[2020-10-18 13:28] LABS: ANA Pattern Speckled; ANA Pattern 2 Nucleolar
== END | disposition home or self-care (01) ==
LOC: LABWHC1 09:54
PROVIDERS: ATTEND Dermatology
DX: L30.9 Dermatitis, unspecified (principal)
CPT/HCPCS: 36415; 82378; 82728; 82785; 84443; 85025; 85652; 86038; 86039; 86235

== ENCOUNTER → 2021-02-05 | Outpatient (CLI) | payer MEDICARE, OTHER ==
[2021-02-06 02:34] LABS: Albumin 4.2 g/dL (3.8-4.9); Albumin/Globulin Ratio 1.43 (1.60-3.17); Bilirubin, Conjugated 0.31 mg/dL (0.20-0.40); Bilirubin,Unconjugated 0.71 mg/dL (0.20-1.00); Chol/HDL Ratio 2.7 Ratio; Globulin 2.9 g/dL (1.6-3.3); HDL Cholesterol 51.8 mg/dL (40.00-60.00); LDL Cholesterol,Calculated 61.6 mg/dL (0.0-131.0); Total Protein 7.1 g/dL (6.2-8.2); VLDL Calculation 26.6 mg/dL (5.00-40.00)
== END | disposition home or self-care (01) ==
LOC: LABWHC1 11:24
PROVIDERS: ATTEND Family Medicine
DX: E78.5 Hyperlipidemia, unspecified (principal)
CPT/HCPCS: 36415; 80061; 80076

== ENCOUNTER → 2021-04-08 | Outpatient (CLI) | payer MEDICARE ==
[2021-04-08 14:43] LABS: Appearance,Urine Clear (Clear); Bilirubin,Urine Negative (Negative); Blood,Urine Negative (Negative); Color,Urine Light Yellow; Glucose,Urine (UA) Negative (Negative); Ketones,Urine Negative (Negative); Leukocyte Esterase,Urine Negative (Negative); Nitrite,Urine Negative (Negative); PH, Urine 5.5 (5.0-8.0); Protein,Urine Negative (Negative); Specific Gravity,Urine 1.006 (1.001-1.035); Urobilinogen,Urine <2.0 mg/dL (<2.0)
[2021-04-08 14:54] LABS: Creatinine,Urine Random 63.7 mg/dL; Protein/Creatinine Ratio,Urine 0.408
[2021-04-08 23:50] LABS: Basophils # (A) 0.04 X 10*3/uL (0.00-0.10); Basophils % (A) 0.6 %; Eosinophils # (A) 0.59 X 10*3/uL (0.04-0.35); Eosinophils % (A) 8.5 %; HCT 44.4 % (39.6-50.0); Lymphocytes # (A) 1.61 X 10*3/uL (0.90-5.00); Lymphocytes % (A) 23.2 %; MCH 30.9 pg (27.0-32.0); MCHC 31.5 g/dL (32.0-37.0); Mean Platelet Volume 10.8 fL (9.5-12.2); Monocytes # (A) 0.78 X 10*3/uL (0.20-1.00); Monocytes % (A) 11.2 %; Neutrophils # (A) 3.91 X 10*3/uL (1.80-7.70); Neutrophils % (A) 56.2 %; Platelet Count 157 X 10*3/uL (140-440); RBC 4.53 X 10*6/uL (4.40-5.60); RDW 14.9 % (11.5-14.5); WBC 6.95 X 10*3/uL (4.50-10.00)
[2021-04-09 02:16] LABS: % Iron Saturation 19.88 (15.00-50.00); African American GFR (CKD) 31.3 (60.0-200.0); Albumin 4.1 g/dL (3.8-4.9); Anion Gap 12.1 mmol/L (10.00-18.00); BUN/Creat Ratio 12.46 Ratio (12.00-20.00); Blood Urea Nitrogen 31.4 mg/dL (9.0-27.0); Carbon Dioxide 20.7 mmol/L (20.0-27.5); Magnesium 2.1 mg/dL (1.5-2.4); Phosphorus 3.2 mg/dL (2.4-5.1); Potassium 4.5 mmol/L (3.5-5.5); Uric Acid 11.2 mg/dL (3.7-8.7)
== END | disposition home or self-care (01) ==
LOC: LABWHC1 13:11
DX: N18.30 Chronic kidney disease, stage 3 unspecified (principal); E55.9 Vitamin D deficiency, unspecified; N25.81 Secondary hyperparathyroidism of renal origin; M10.9 Gout, unspecified; N39.0 Urinary tract infection, site not specified; D64.9 Anemia, unspecified; R80.9 Proteinuria, unspecified
CPT/HCPCS: 36415; 80048; 81003; 82040; 82306; 82570; 82728; 83540; 83550; 83735; 83970; 84100; 84156; 84550; 85025

== ENCOUNTER → 2021-07-17 | Outpatient (CLI) | payer OTHER ==
[2021-07-17 18:03] LABS: Creatinine,Urine Random 198.1 mg/dL; Protein/Creatinine Ratio,Urine 0.086
[2021-07-17 22:40] LABS: Appearance,Urine Clear (Clear); Bilirubin,Urine Negative (Negative); Blood,Urine Negative (Negative); Color,Urine Yellow (Yellow); Ketones,Urine Negative (Negative); Leukocyte Esterase,Urine Negative (Negative); Nitrite,Urine Negative (Negative); Protein,Urine Trace (Negative); Specific Gravity,Urine 1.016 (1.001-1.030)
[2021-07-18 00:26] LABS: % Iron Saturation 25.44 (15.00-50.00); African American GFR (CKD) 35.7 (60.0-200.0); Anion Gap 12.5 mmol/L (10.00-18.00); BUN/Creat Ratio 11.37 Ratio (12.00-20.00); Blood Urea Nitrogen 25.7 mg/dL (9.0-27.0); Calcium 9.6 mg/dL (8.7-10.3); Carbon Dioxide 18.8 mmol/L (20.0-27.5); Magnesium 2.1 mg/dL (1.5-2.4); Non-African American GFR(CKD) 30.8 (60.0-200.0); Phosphorus 2.8 mg/dL (2.4-5.1); Potassium 5.4 mmol/L (3.5-5.5); Uric Acid 9.3 mg/dL (3.7-8.7)
[2021-07-18 01:00] LABS: Basophils # (A) 0.04 X 10*3/uL (0.00-0.10); Basophils % (A) 0.5 %; Eosinophils # (A) 0.53 X 10*3/uL (0.04-0.35); Eosinophils % (A) 6.4 %; HCT 44.5 % (39.6-50.0); Immature Grans, Automated 0.6 %; Lymphocytes # (A) 1.66 X 10*3/uL (0.90-5.00); MCH 30.8 pg (27.0-32.0); MCHC 31.5 g/dL (32.0-37.0); Mean Platelet Volume 10.3 fL (9.5-12.2); Monocytes # (A) 0.79 X 10*3/uL (0.20-1.00); Monocytes % (A) 9.5 %; NRBC Per 100 WBC 0 /100 WBCS (0.0-0.0); Neutrophils # (A) 5.24 X 10*3/uL (1.80-7.70); Platelet Count 158 X 10*3/uL (140-440); RBC 4.54 X 10*6/uL (4.40-5.60); RDW 14.6 % (11.5-14.5); WBC 8.31 X 10*3/uL (4.50-10.00)
[2021-07-18 04:40] LABS: Albumin 4.3 g/dL (3.8-4.9)
== END | disposition home or self-care (01) ==
LOC: LABWHC1 16:26
PROVIDERS: ATTEND Nurse Practitioner Family
DX: M10.9 Gout, unspecified (principal); N18.30 Chronic kidney disease, stage 3 unspecified; E55.9 Vitamin D deficiency, unspecified; N25.81 Secondary hyperparathyroidism of renal origin; N39.0 Urinary tract infection, site not specified; D64.9 Anemia, unspecified
CPT/HCPCS: 36415; 80048; 81003; 82040; 82306; 82570; 82728; 83540; 83550; 83735; 83970; 84100; 84156; 84550; 85025

== ENCOUNTER 2021-11-19 12:17 | Emergency (ER) | payer OTHER ==
[2021-11-19 12:21] VITALS: RESP 18; TEMP 99.4
--- NOTE | 2021-11-19 13:32 | ED ---
General Adult HPI - General Chief complaint: Upper Respiratory Infection Stated complaint: Hemoptysis Time Seen by Provider: 11/19/21 13:13 Source: patient, family, RN notes reviewed Mode of arrival: wheelchair Limitations: no limitations - History of Present Illness Initial comments: Patient is a pleasant 61-year-old male presenting to the emergency Department with hemoptysis as a chief complaint. Patient does have history of DVT left leg previously. Patient is on Xarelto. Symptoms have been present for the past approximate 9 days, same day patient received his booster for COVID-19 infection, from [facility]. Patient has had fatigue and myalgias. Patient has had some fevers. No rhinorrhea. Patient does not feel he could have COVID-19 infection and refuses testing for this. - Related Data Home Medications Medication Instructions Recorded Confirmed Furosemide [Lasix] 80 mg PO DAILY 04/02/15 08/24/20 Atorvastatin [Lipitor] 40 mg PO W/LUNCH 08/21/20 08/24/20 Losartan Potassium 50 mg PO DAILY 08/21/20 08/24/20 Metoprolol Tartrate [Lopressor] 12.5 mg PO DAILY 08/21/20 08/24/20 Rivaroxaban [Xarelto] 20 mg PO DAILY 08/21/20 08/24/20 Spironolactone [Aldactone] 25 mg PO DAILY 08/21/20 08/24/20 ALPRAZolam [Xanax] 2 mg PO TID 08/22/20 08/24/20 HYDROcodone/APAP 10-325MG [[place] 1 tab PO TID PRN 08/22/20 08/24/20 10-325] Previous Rx's Medication Instructions Recorded Acetaminophen Tab [Tylenol] 650 mg PO Q6H #30 tab 08/24/20 Docusate [Colace] 100 mg PO BID #20 capsule 08/24/20 Ibuprofen [Motrin] 600 mg PO Q6HR PRN #40 tab 08/24/20 oxyCODONE HCL [OxyIR] 5 mg PO Q6H PRN 3 Days #10 tab 08/24/20 Azithromycin [Zithromax Z Pack] 250 mg PO DAILY #6 tab 11/19/21 Allergies Allergy/AdvReac Type Severity Reaction Status Date / Time propoxyphene napsylate Allergy Abdominal Verified 07/19/22 12:21 [From Katie-N 100] Pain Review of Systems ROS Statement: Those systems with pertinent positive or pertinent negative responses have been documented in the HPI. ROS Other: All systems not noted in ROS Statement are negative. Constitutional: Reports: as per HPI, fever, chills Eyes: Denies: eye pain ENT: Denies: ear pain Respiratory: Reports: as per HPI, cough, hemoptysis Cardiovascular: Denies: chest pain Endocrine: Reports: fatigue Gastrointestinal: Denies: abdominal pain Genitourinary: Denies: dysuria Musculoskeletal: Denies: back pain Skin: Denies: rash Neurological: Denies: weakness Past Medical History Past Medical History: Atrial Flutter, Heart Failure, COPD, Deep Vein Thrombosis (DVT), GERD/Reflux, Hyperlipidemia, Hypertension, Pneumonia, Renal Disease, Sleep Apnea/CPAP/BIPAP Additional Past Medical History / Comment(s): RETRO PERITONEAL FIBROSIS, HX OF DVT 2002, GOUT, SLEEP APNEA- NO MACHINE AT THIS TIME., STATES , STATES LEFT KIDNEY NOT FUNCTIONING, RIGHT KIDNEY STENT. BACK PAIN. , History of Any Multi-Drug Resistant Organisms: None Reported Past Surgical History: Joint Replacement Additional Past Surgical History / Comment(s): TOTAL LEFT KNEE, SERA FILTER (RIGHT GROIN), Past Anesthesia/Blood Transfusion Reactions: No Reported Reaction Past Psychological History: Anxiety Smoking Status: Former smoker - Past Family History Mother Family Medical History: No Reported History General Exam Limitations: no limitations General appearance: alert, in no apparent distress Head exam: Present: normocephalic Eye exam: Present: normal appearance Neck exam: Present: normal inspection Respiratory exam: Present: normal lung sounds bilaterally. Absent: respiratory distress Cardiovascular Exam: Present: regular rate, normal rhythm GI/Abdominal exam: Present: soft. Absent: tenderness Extremities exam: Present: normal inspection. Absent: pedal edema, calf tenderness Neurological exam: Present: alert Psychiatric exam: Present: normal affect, normal mood Skin exam: Present: normal color Course Vital Signs 11/19/21 12:18 Temperature 99.4 F Pulse Rate 92 Respiratory 18 Rate Blood Pressure 132/83 O2 Sat by Pulse 93 L Oximetry - Reevaluation(s) Reevaluation #1: 11/19/21 14:59 Patient confirms she does have a history of atrial flutter however had previous ablation. EKG Findings - EKG Comments: EKG Findings:: Atrial flutter with a rate of 86. QRS 88. QT 355. QTC 390. No rmal axis. Normal QRS. No acute ST change. Medical Decision Making - Medical Decision Making Patient reevaluated. Patient and family updated. Case was discussed earlier with Dr. Roman who agreed with admission. Patient is refusing admission. Patient does demonstrate medical decision making. Family is present. Patient is receptive to a dose of antibiotics prior to discharge. He is also receptive to close follow-up with his primary care doctor and to return if worse. - Lab Data Result diagrams: 11/19/21 14:23 11/19/21 14:23 Lab Results 11/19/21 11/19/21 11/19/21 Range/Units 14:18 14:23 14:23 WBC 17.1 H (3.8-10.6) k/uL RBC 4.29 L (4.30-5.90) m/uL Hgb 13.4 (13.0-17.5) gm/dL Hct 41.7 (39.0-53.0) % MCV 97.2 (80.0-100.0) fL MCH 31.2 (25.0-35.0) pg MCHC 32.1 (31.0-37.0) g/dL RDW 14.0 (11.5-15.5) % Plt Count 224 (150-450) k/uL MPV 8.5 Neutrophils % 83 % Lymphocytes % 6 % Monocytes % 6 % Eosinophils % 4 % Basophils % 1 % Neutrophils # 14.2 H (1.3-7.7) k/uL Lymphocytes # 1.1 (1.0-4.8) k/uL Monocytes # 1.0 (0-1.0) k/uL Eosinophils # 0.6 (0-0.7) k/uL Basophils # 0.2 (0-0.2) k/uL PT 12.9 H (9.0-12.0) sec INR 1.2 H (<1.2) APTT 33.1 H (22.0-30.0) sec Sodium (137-145) mmol/L Potassium (3.5-5.1) mmol/L Chloride (98-107) mmol/L Carbon Dioxide (22-30) mmol/L Anion Gap mmol/L BUN (9-20) mg/dL Creatinine (0.66-1.25) mg/dL Est GFR (CKD-EPI)AfAm (>60 ml/min/1.73 sqM) Est GFR (CKD-EPI)NonAf (>60 ml/min/1.73 sqM) Glucose (74-99) mg/dL Plasma Lactic Acid Hakeem 1.3 (0.7-2.0) mmol/L Calcium (8.4-10.2) mg/dL Total Bilirubin (0.2-1.3) mg/dL AST (17-59) U/L ALT (4-49) U/L Alkaline Phosphatase (38-126) U/L Total Protein (6.3-8.2) g/dL Albumin (3.5-5.0) g/dL Coronavirus (PCR) (Not Detectd) Influenza Type A RNA (Not Detectd) Influenza Type B (PCR) (Not Detectd) 11/19/21 11/19/21 11/19/21 Range/Units 14:23 14:30 14:30 WBC (3.8-10.6) k/uL RBC (4.30-5.90) m/uL Hgb (13.0-17.5) gm/dL Hct (39.0-53.0) % MCV (80.0-100.0) fL MCH (25.0-35.0) pg MCHC (31.0-37.0) g/dL RDW (11.5-15.5) % Plt Count (150-450) k/uL MPV Neutrophils % % Lymphocytes % % Monocytes % % Eosinophils % % Basophils % % Neutrophils # (1.3-7.7) k/uL Lymphocytes # (1.0-4.8) k/uL Monocytes # (0-1.0) k/uL Eosinophils # (0-0.7) k/uL Basophils # (0-0.2) k/uL PT (9.0-12.0) sec INR (<1.2) APTT (22.0-30.0) sec Sodium 133 L (137-145) mmol/L Potassium 5.2 H (3.5-5.1) mmol/L Chloride 103 (98-107) mmol/L Carbon Dioxide 20 L (22-30) mmol/L Anion Gap 10 mmol/L BUN 46 H (9-20) mg/dL Creatinine 2.75 H (0.66-1.25) mg/dL Est GFR (CKD-EPI)AfAm 28 (>60 ml/min/1.73 sqM) Est GFR (CKD-EPI)NonAf 24 (>60 ml/min/1.73 sqM) Glucose 93 (74-99) mg/dL Plasma Lactic Acid Hakeem (0.7-2.0) mmol/L Calcium 9.0 (8.4-10.2) mg/dL Total Bilirubin 2.2 H (0.2-1.3) mg/dL AST 21 (17-59) U/L ALT 10 (4-49) U/L Alkaline Phosphatase 71 (38-126) U/L Total Protein 7.6 (6.3-8.2) g/dL Albumin 4.0 (3.5-5.0) g/dL Coronavirus (PCR) Not Detected (Not Detectd) Influenza Type A RNA Not Detected (Not Detectd) Influenza Type B (PCR) Not Detected (Not Detectd) - Radiology Data Radiology results: report reviewed (vq scan low probability), image reviewed (Chest x-ray shows right lower lobe infiltrate) Disposition Clinical Impression: Pneumonia Disposition: Left Against Medical Advice Instructions (If sedation given, give patient instructions): Community Acquired Pneumonia (ED) Additional Instructions: Prescription has been sent to pharmacy, please start medication tomorrow. Please follow-up with primary care physician in the next day or 2 as planned. Return for difficulty breathing, fevers, worsening or changing symptoms or other concerns. You're leaving AGAINST MEDICAL ADVICE. Prescriptions: Azithromycin [Zithromax Z Pack] 250 mg PO DAILY #6 tab Is patient prescribed a controlled substance at d/c from ED?: No Referrals: Ryan Roman MD [Primary Care Provider] - 1-2 days Time of Disposition: 16:28
--- NOTE | 2021-11-19 13:52 | XR ---
EXAMINATION TYPE: XR chest 2V DATE OF EXAM: 11/19/2021 1:39 PM COMPARISON: Chest radiographs from 02/03/2020 TECHNIQUE: XR chest 2V Frontal and lateral views of the chest. CLINICAL INDICATION:Male, 61 years old with history of difficulty breathing; FINDINGS: Lungs/Pleura: No pneumothorax. Peripheral right base opacity only seen on the frontal view. Pulmonary vascularity: Unremarkable. Heart/mediastinum: Cardiomediastinal silhouette is unremarkable. Musculoskeletal: No acute osseous pathology. Dextroscoliotic curvature of the thoracic spine. IMPRESSION: Peripheral right base opacity only seen on the frontal view may represent pneumonia in the appropriat e setting.
[2021-11-19 14:55] LABS: Basophils # (A) 0.2 k/uL (0-0.2); Basophils % (A) 1 %; Eosinophils # (A) 0.6 k/uL (0-0.7); Eosinophils % (A) 4 %; HCT 41.7 % (39.0-53.0); HGB 13.4 gm/dL (13.0-17.5); Lymphocytes # (A) 1.1 k/uL (1.0-4.8); Lymphocytes % (A) 6 %; MCH 31.2 pg (25.0-35.0); MCHC 32.1 g/dL (31.0-37.0); MCV 97.2 fL (80.0-100.0); Mean Platelet Volume 8.5; Monocytes % (A) 6 %; Neutrophils # (A) 14.2 k/uL (1.3-7.7); Neutrophils % (A) 83 %; Platelet Count 224 k/uL (150-450); RBC 4.29 m/uL (4.30-5.90); WBC 17.1 k/uL (3.8-10.6)
[2021-11-19 15:03] LABS: Total Bilirubin 2.2 mg/dL (0.2-1.3); Total Protein 7.6 g/dL (6.3-8.2)
[2021-11-19 15:07] LABS: Potassium 5.2 mmol/L (3.5-5.1)
[2021-11-19 15:21] LABS: INR 1.2 (<1.2); Partial Thromboplastin Time 33.1 sec (22.0-30.0); Prothrombin Time 12.9 sec (9.0-12.0)
--- NOTE | 2021-11-19 16:17 | NM ---
EXAMINATION TYPE: NM pul vent and perfuse DATE OF EXAM: 11/19/2021 COMPARISON: VQ scan 08/10/2014, chest radiograph 11/19/2021. HISTORY: Hemoptysis TECHNIQUE: Utilizing inhalation of 68.9 mCi Tc 99m DTPA aerosol and intravenous injection of 5.1 mCi of Tc 99m MAA, ventilation and perfusion images are acquired post injection in multiple projections. FINDINGS: Small to moderate-sized matching defects identified most pronounced within the right lower lobe with corresponding airspace opacity on chest radiograph. No evidence of mismatch defects. IMPRESSION: Low probability for pulmonary embolism.
[2021-11-19] MEDS ORDERED: cefTRIAXone IN SWFI 1,000 MG/10 ML SYRINGE IVP STA (16:26)
[2021-11-19] MEDS ORDERED: AZITHROMYCIN 500 MG TAB PO STA (16:31)
[2021-11-19 16:57] VITALS: BP 135/74; PULSE 82
== END 2021-11-19 17:07 | disposition left against medical advice (07) ==
LOC: EC 12:17
DX: J18.9 Pneumonia, unspecified organism (principal); J44.9 Chronic obstructive pulmonary disease, unspecified; K21.9 Gastro-esophageal reflux disease without esophagitis; I11.0 Hypertensive heart disease with heart failure; M10.9 Gout, unspecified; I50.9 Heart failure, unspecified; E07.9 Disorder of thyroid, unspecified; Z88.8 Allergy status to other drugs, medicaments and biological substances; Z53.21 Procedure and treatment not carried out due to patient leaving prior to being seen by health care provider; Z20.822 Contact with and (suspected) exposure to COVID-19; Z87.891 Personal history of nicotine dependence; Z79.899 Other long term (current) drug therapy
CPT/HCPCS: 36415; 93005; 80053; 83605; 85025; 85610; 85730; 87040; 87502; 87635; 71046; 78582; 99284; 96374; A9540; A9567; J0696

== ENCOUNTER 2021-11-24 13:03 | Inpatient (IN) | payer MEDICARE, OTHER ==
[2021-11-24] MEDS ORDERED: SODIUM CHLORIDE 0.9% 1,000 ML IV STA ×2 (13:36→17:13)
--- NOTE | 2021-11-24 13:52 | ED ---
General Adult HPI - General Chief complaint: Shortness of Breath Stated complaint: pneumonia Time Seen by Provider: 11/24/21 13:15 Source: patient, RN notes reviewed, old records reviewed Mode of arrival: wheelchair Limitations: no limitations - History of Present Illness Initial comments: Patient is a 61-year-old male who presents with the department with continued shortness of breath, productive cough, fevers and chills at home. This is been ongoing since last week. Was evaluated on November 19 and recommended admission for pneumonia, however patient declined. Left AMA on azithromycin. Presents today with no improvement in symptoms. Endorses a productive cough of greenish, dark brown mucus. No domonique hemoptysis. Endorses sweats, as well as subjective fevers. Denies chest pain, abdominal pain, nausea, vomiting. Denies diarrhea. Has no history of heart failure. Does have a history of atrial fibrillation s/p ablation. His history of DVT and is on Xeralto. Perfusion scan was performed on last visit which showed low risk. He is compliant with his blood thinning medication. Presents for further evaluation at this time. No history of COPD or asthma.Was vaccinated for flui as well as COVID-19. - Related Data Home Medications Medication Instructions Recorded Confirmed Atorvastatin [Lipitor] 40 mg PO PC-SUPPER 08/21/20 11/24/21 Rivaroxaban [Xarelto] 20 mg PO PC-SUPPER 08/21/20 11/24/21 Spironolactone [Aldactone] 25 mg PO PC-SUPPER 08/21/20 11/24/21 ALPRAZolam [Xanax] 2 mg PO TID 08/22/20 11/24/21 HYDROcodone/APAP 10-325MG [[place] 1 tab PO TID 08/22/20 11/24/21 10-325] Clobetasol Propionate [Temovate 1 applic TOPICAL BID 11/19/21 11/24/21 0.05% Cream] Ergocalciferol [Vitamin D2 (1250 1,250 mcg PO MO 11/19/21 11/24/21 Mcg = 80882 Iu)] Furosemide [Lasix] 40 mg PO PC-SUPPER 11/19/21 11/24/21 Losartan Potassium 100 mg PO PC-SUPPER 11/19/21 11/24/21 Metoprolol Succinate [Toprol XL] 100 mg PO PC-SUPPER 11/19/21 11/24/21 Mometasone Furoate [[place] 0.1% 1 applic TOPICAL BID 11/19/21 11/24/21 Top Soln] allopurinoL [Zyloprim] 200 mg PO PC-SUPPER PRN 11/19/21 11/24/21 calcitrioL [Rocaltrol] 0.25 mcg PO MO 11/19/21 11/24/21 Previous Rx's Medication Instructions Recorded Azithromycin [Zithromax Z Pack] 250 mg PO DAILY #6 tab 11/19/21 Allergies Allergy/AdvReac Type Severity Reaction Status Date / Time propoxyphene napsylate AdvReac Abdominal Verified 11/24/21 16:23 [From Katie-N 100] Pain Review of Systems ROS Statement: Those systems with pertinent positive or pertinent negative responses have been documented in the HPI. Review of Systems: CONST: Denies fever EYES: Denies blurry vision ENT: Endorses nasal congestion C/V: Denies Chest pain RESP: Endorses cough GI: Denies abdominal pain : Denies dysuria SKIN: Denies rash. MSK: Denies joint pain. NEURO: Denies headache ROS Other: All systems not noted in ROS Statement are negative. Past Medical History Past Medical History: Atrial Flutter, Heart Failure, COPD, Deep Vein Thrombosis (DVT), GERD/Reflux, Hyperlipidemia, Hypertension, Pneumonia, Renal Disease, Sleep Apnea/CPAP/BIPAP Additional Past Medical History / Comment(s): RETRO PERITONEAL FIBROSIS, HX OF DVT 2002, GOUT, SLEEP APNEA- NO MACHINE AT THIS TIME., STATES , STATES LEFT KIDNEY NOT FUNCTIONING, RIGHT KIDNEY STENT. BACK PAIN. , History of Any Multi-Drug Resistant Organisms: None Reported Past Surgical History: Joint Replacement Additional Past Surgical History / Comment(s): TOTAL LEFT KNEE, SERA FILTER (RIGHT GROIN), Past Anesthesia/Blood Transfusion Reactions: No Reported Reaction Past Psychological History: Anxiety Smoking Status: Former smoker Past Alcohol Use History: None Reported Past Drug Use History: None Reported - Past Family History Mother Family Medical History: No Reported History General Exam - General Exam Comments Initial Comments: General: Appears in no acute distress. HEAD: Normal with no signs of head trauma. EYES: PERRLA, EOMI, conjunctiva normal, no discharge. ENT: Hearing grossly intact, normal oropharynx. RESPIRATORY: Clear breath sounds bilaterally. No wheezes, rales, or rhonchi. No hypoxia. Very mild increased work of breathing. C/V: Tachycardic. S1 and S2 auscultated. No peripheral edema. Peripheral pulses 2+ and intact throughout. ABD: Abd is soft, nontender, nondistended EXT: Normal range of motion, no obvious deformity SKIN: No rashes or lesions observed on exposed skin. NEURO: Alert and oriented x 4. Cranial nerves II-XII intact. No focal sensory or strength deficits. Limitations: no limitations Course Vital Signs 11/24/21 11/24/21 13:11 17:55 Temperature 98.9 F Pulse Rate 100 100 Respiratory 24 18 Rate Blood Pressure 128/85 161/83 O2 Sat by Pulse 97 96 Oximetry Medical Decision Making - Medical Decision Making Based on the patient's presentation and physical exam, I'm concerned for worsening of his previously diagnosed pneumonia. Failed outpatient treatment. Patient will likely be admitted to the hospital on this visit and he was in agreement this plan. We will obtain a screening EKG in addition to laboratory studies and chest x-ray. Covid and flu sounds will be reobtained. He will be given a 1 L fluid bolus. Patient was in agreement with this plan. EKG shows suspected atrial fibrillation that is rate controlled. Imaging revealed reoccurrence of the right lateral opacity the right lung base which may represent pneumonia. Laboratory studies were remarkable for leukocytosis of 13.6 which is improved from the other day. Patient has a hemoglobin level of 12.2 which is decreased from the other day. Coags are within normal limits. Patient has a mild hyper kalemia 5.3 which is hemolyzed. Did receive fluids for this. Patient has an AK I on CK D with a slightly elevated creatinine of 3.29 MB 149 above his baseline of 2.3-2.75. COVID-19 and flu are negative. Vital signs are within normal limits. No hypoxia. Troponin indeterminate. I discussed the results of the patient. Recommended we obtain a CT without contrast to further evaluate the opacity. Patient was apparently started on antibiotics for possible pneumonia at this time. Blood cultures were sent. CT showed wedge shaped regions of consolidation in the right lung consistent with pulmonary infarcts. There is also small right pleural effusion. I discussed with the patient this is likely secondary to a pulmonary embolism despite being on anticoagulation at home. Echo was ordered. We ordered a VQ scan as well which will be done tomorrow. Discussed starting him on high intensity heparin which she was in agreement. I spoke with the child caregiver on- call, Dr. Barajas who agreed with this plan, as the patient's hemoptysis is not domonique blood. But rather dark brown/green and lessening over the last week. I also spoke with the on-call [facility] physician Dr. Germain to notify him of the consult. He recommended echo. This was already ordered. Cardiology was also consulted due to recurrence of his atrial fibrillation. I spoke with the admitting physician, Dr. Israel who accepted the patient. Patient was admitted in serious condition on his heparin drip. Venous duplexes pending. - Lab Data Result diagrams: 11/24/21 14:08 11/24/21 14:08 Lab Results 11/24/21 11/24/21 11/24/21 Range/Units 14:08 14:08 14:08 WBC 13.6 H (3.8-10.6) k/uL RBC 3.90 L (4.30-5.90) m/uL Hgb 12.2 L (13.0-17.5) gm/dL Hct 38.1 L (39.0-53.0) % MCV 97.7 (80.0-100.0) fL MCH 31.3 (25.0-35.0) pg MCHC 32.0 (31.0-37.0) g/dL RDW 14.0 (11.5-15.5) % Plt Count 323 (150-450) k/uL MPV 8.3 Neutrophils % 80 % Lymphocytes % 7 % Monocytes % 5 % Eosinophils % 6 % Basophils % 1 % Neutrophils # 10.8 H (1.3-7.7) k/uL Lymphocytes # 1.0 (1.0-4.8) k/uL Monocytes # 0.7 (0-1.0) k/uL Eosinophils # 0.9 H (0-0.7) k/uL Basophils # 0.1 (0-0.2) k/uL PT 10.7 (9.0-12.0) sec INR 1.0 (<1.2) APTT 26.1 (22.0-30.0) sec Sodium 135 L (137-145) mmol/L Potassium 5.3 H (3.5-5.1) mmol/L Chloride 106 (98-107) mmol/L Carbon Dioxide 19 L (22-30) mmol/L Anion Gap 10 mmol/L BUN 49 H (9-20) mg/dL Creatinine 3.29 H (0.66-1.25) mg/dL Est GFR (CKD-EPI)AfAm 23 (>60 ml/min/1.73 sqM) Est GFR (CKD-EPI)NonAf 19 (>60 ml/min/1.73 sqM) Glucose 99 (74-99) mg/dL Plasma Lactic Acid Hakeem (0.7-2.0) mmol/L Calcium 8.8 (8.4-10.2) mg/dL Magnesium 2.3 (1.6-2.3) mg/dL Total Bilirubin 1.3 (0.2-1.3) mg/dL AST 20 (17-59) U/L ALT 12 (4-49) U/L Alkaline Phosphatase 109 (38-126) U/L Total Protein 7.1 (6.3-8.2) g/dL Albumin 3.4 L (3.5-5.0) g/dL Coronavirus (PCR) (Not Detectd) Influenza Type A RNA (Not Detectd) Influenza Type B (PCR) (Not Detectd) 11/24/21 11/24/21 11/24/21 Range/Units 14:08 14:08 14:08 WBC (3.8-10.6) k/uL RBC (4.30-5.90) m/uL Hgb (13.0-17.5) gm/dL Hct (39.0-53.0) % MCV (80.0-100.0) fL MCH (25.0-35.0) pg MCHC (31.0-37.0) g/dL RDW (11.5-15.5) % Plt Count (150-450) k/uL MPV Neutrophils % % Lymphocytes % % Monocytes % % Eosinophils % % Basophils % % Neutrophils # (1.3-7.7) k/uL Lymphocytes # (1.0-4.8) k/uL Monocytes # (0-1.0) k/uL Eosinophils # (0-0.7) k/uL Basophils # (0-0.2) k/uL PT (9.0-12.0) sec INR (<1.2) APTT (22.0-30.0) sec Sodium (137-145) mmol/L Potassium (3.5-5.1) mmol/L Chloride (98-107) mmol/L Carbon Dioxide (22-30) mmol/L Anion Gap mmol/L BUN (9-20) mg/dL Creatinine (0.66-1.25) mg/dL Est GFR (CKD-EPI)AfAm (>60 ml/min/1.73 sqM) Est GFR (CKD-EPI)NonAf (>60 ml/min/1.73 sqM) Glucose (74-99) mg/dL Plasma Lactic Acid Hakeem 0.8 (0.7-2.0) mmol/L Calcium (8.4-10.2) mg/dL Magnesium (1.6-2.3) mg/dL Total Bilirubin (0.2-1.3) mg/dL AST (17-59) U/L ALT (4-49) U/L Alkaline Phosphatase (38-126) U/L Total Protein (6.3-8.2) g/dL Albumin (3.5-5.0) g/dL Coronavirus (PCR) Not Detected (Not Detectd) Influenza Type A RNA Not Detected (Not Detectd) Influenza Type B (PCR) Not Detected (Not Detectd) - EKG Data -: EKG Interpreted by Me EKG Comments: 12-lead Electrocardiogram Interpretation Note EKG was reviewed and interpreted by myself. 12-lead ECG performed at 1318 is interpreted by me as revealing atrial tachycardia, suspect atrial fibrillation at a rate of 99 beats per minute. [place] is normal. [place] interval is unobtainable, QRS duration is 87 ms, QTc is 393 ms.. There were no ST or T wave abnormalities to suggest myocardial ischemia or injury. R wave progression across the precordium was satisfactory. By my interpretation this EKG is non-diagnostic for acute ischemia. Critical Care Time Critical Care Time: Yes Total Critical Care Time: 35 Critical Care Time: Upon my evaluation, this patient had a high probability of imminent or life- threatening deterioration due to pulmonary infection with suspected PE, VIVIAN on CKD, Heperin initiation, which required my direct attention, intervention, and personal management. I have personally provided 35 minutes of critical care time exclusive of time spent on separately billable procedures. Time includes review of laboratory data, radiology results, discussion with consultants, and monitoring for potential decompensation. Interventions were performed as documented in my note. Disposition Clinical Impression: Pulmonary infarction, History of atrial fibrillation, Acute kidney injury superimposed on CKD Narrative: suspect pulmonary embolism right lung. Disposition: ADMITTED IP TO THIS HOSP Condition: Serious Time of Disposition: 16:50
[2021-11-24 15:02] LABS: Basophils # (A) 0.1 k/uL (0-0.2); Basophils % (A) 1 %; Eosinophils # (A) 0.9 k/uL (0-0.7); Eosinophils % (A) 6 %; HCT 38.1 % (39.0-53.0); HGB 12.2 gm/dL (13.0-17.5); Lymphocytes % (A) 7 %; MCH 31.3 pg (25.0-35.0); MCV 97.7 fL (80.0-100.0); Mean Platelet Volume 8.3; Monocytes # (A) 0.7 k/uL (0-1.0); Monocytes % (A) 5 %; Neutrophils # (A) 10.8 k/uL (1.3-7.7); Neutrophils % (A) 80 %; Platelet Count 323 k/uL (150-450); WBC 13.6 k/uL (3.8-10.6)
[2021-11-24 15:10] LABS: Partial Thromboplastin Time 26.1 sec (22.0-30.0); Prothrombin Time 10.7 sec (9.0-12.0)
[2021-11-24 15:16] LABS: Albumin 3.4 g/dL (3.5-5.0); Calcium 8.8 mg/dL (8.4-10.2); Magnesium 2.3 mg/dL (1.6-2.3); Total Bilirubin 1.3 mg/dL (0.2-1.3); Total Protein 7.1 g/dL (6.3-8.2)
[2021-11-24 15:19] LABS: Potassium 5.3 mmol/L (3.5-5.1)
--- NOTE | 2021-11-24 15:41 | XR ---
EXAMINATION TYPE: XR chest 2V DATE OF EXAM: 11/24/2021 3:26 PM COMPARISON: Chest radiographs from 11/19/2021 TECHNIQUE: XR chest 2V Frontal and lateral views of the chest. CLINICAL INDICATION:Male, 61 years old with history of difficulty breathing; FINDINGS: Lungs/Pleura: There is no evidence of pleural effusion or pneumothorax. Similar opacity overlying the lateral right lung base on the frontal view. Pulmonary vascularity: Unremarkable. Heart/mediastinum: Cardiomediastinal silhouette is unremarkable. Musculoskeletal: No acute osseous pathology. Dextro curvature of the thoracic spine. IMPRESSION: Unchanged opacity along the lateral aspect of the right lung base which may represent pneumonia. Cons ider further evaluation with CT chest as clinically indicated.
[2021-11-24] MEDS ORDERED: AZITHROMYCIN 500 MG in SODIUM CHLORIDE 0.9% 250 ML IVPB STA ×2 (15:55→15:57)
[2021-11-24] MEDS ORDERED: PNEUMONIA PROTOCOL UTILIZED 1 EACH MISC PO PRN (15:57)
--- NOTE | 2021-11-24 16:38 | CT ---
EXAMINATION TYPE: CT chest wo con CT DLP: 851.8 mGycm, Automated exposure control for dose reduction was used. DATE OF EXAM: 11/24/2021 4:13 PM COMPARISON: CT chest 09/19/2016, chest radiograph 11/24/2021. CLINICAL INDICATION:Male, 61 years old with history of Cough; TECHNIQUE: Multiple axial images were obtained through the chest without IV contrast. Lack of IV or o ral contrast limits evaluation of solid and hollow organ viscera. Coronal and sagittal reformats revi ewed. FINDINGS: LUNGS/ PLEURA: No pneumothorax. Small right pleural effusion. There are peripheral wedge-shaped regio ns of bubbly consolidation and groundglass changes within the right middle and lower lobes. No suspi cious pulmonary nodules. AIRWAY: Patent and unremarkable. HEART: Size within normal limits. Calcification of the coronary arteries. No pericardial effusion.. MEDIASTINUM: Enlarged right paratracheal lymph nodes with index lymph node measuring 1.7 cm short axi s (series 201, image 23). VASCULATURE: No aortic aneurysm. MUSCULOSKELETAL: No acute osseous abnormalities. Scoliotic curvature of the thoracic spine. SOFT TISSUES/LYMPH NODES: Unremarkable. LOWER NECK: No significant findings. UPPER ABDOMEN: Scattered punctate calcified granulomas within the visualized spleen and liver. Postch olecystectomy. Bilateral renal cysts. IVC filter identified. IMPRESSION: 1. Peripheral wedge shaped regions of consolidation/ground glass densities within the right middle an d lower lobes most consistent with pulmonary infarcts. 2. Small right pleural effusion. 3. Nonspecific mediastinal adenopathy which may be reactive.
[2021-11-24] MEDS ORDERED: HEPARIN SODIUM 1,000 UN/ML (10ML VL) IV ONE (16:48)
[2021-11-24] MEDS ORDERED: HEPARIN SODIUM 1,000 UN/ML (10ML VL) IV PRN (16:48)
[2021-11-24] MEDS ORDERED: NALOXONE 0.4 MG/ML 1 ML VIAL IV PRN (17:00)
[2021-11-24] MEDS ORDERED: allopurinoL 100 MG TAB PO PRN (17:13)
[2021-11-24] MEDS: HEPARIN SOD,PORK IN 0.45% NACL 25,000 UNIT in 0.45% NACL 1 250ML.BAG IV SCH (17:47)
[2021-11-24] MEDS: ALPRAZolam 1 MG TAB PO SCH (18:07)
[2021-11-24] MEDS: HYDROcodone/APAP 10-325MG 1 EACH TAB PO SCH (18:08)
--- NOTE | 2021-11-24 20:41 | US ---
EXAMINATION TYPE: US venous doppler duplex LE DATE OF EXAM: 11/24/2021 8:28 PM COMPARISON: NONE CLINICAL HISTORY: PE, eval for dvt. PE SIDE PERFORMED: Bilateral TECHNIQUE: The lower extremity deep venous system is examined utilizing real time linear array sonog jonathan with graded compression, doppler sonography and color-flow sonography. VESSELS IMAGED: Common Femoral Vein Deep Femoral Vein Greater Saphenous Vein * Femoral Vein Popliteal Vein Small Saphenous Vein * Proximal Calf Veins (* superficial vessels) Right Leg: Negative for DVT Left Leg: Negative for DVT Grayscale, color doppler, spectral doppler imaging performed of the deep veins of the lower extremiti es. There is normal flow, compressibility, vascular waveforms. IMPRESSION: No evidence of deep vein thrombus of either lower extremity.
--- NOTE | 2021-11-24 21:11 | P.HPIM ---
History of Present Illness H&P Date: 11/24/21 Chief Complaint: Shortness of breath 61-year-old male who presents with the department with continued shortness of breath, productive cough, fevers and chills at home. This is been ongoing since last week. Was evaluated on November 19 and recommended admission for pneumonia, however patient declined. Left AMA on azithromycin. Presents today with no improvement in symptoms. Endorses a productive cough of greenish, dark brown mucus. No domonique hemoptysis. Endorses sweats, as well as subjective fevers. Denies chest pain, abdominal pain, nausea, vomiting. Denies diarrhea. Has no history of heart failure. Does have a history of atrial fibrillation s/p ablation. His history of DVT and is on Xeralto. Perfusion scan was performed on last visit which showed low risk. He is compliant with his blood thinning medication. Presents for further evaluation at this time. No history of COPD or asthma.Was vaccinated for flui as well as COVID-19. EKG shows suspected atrial fibrillation that is rate controlled. Imaging revealed reoccurrence of the right lateral opacity the right lung base which may represent pneumonia. Laboratory studies were remarkable for leukocytosis of 13.6 which is improved from the other day. Patient has a hemoglobin level of 12.2 which is decreased from the other day. Coags are within normal limits. Patient has a mild hyperkalemia 5.3 which is hemolyzed. Did receive fluids for this. Patient has slightly elevated creatinine of 3.29 above his baseline of 2.3-2.75. COVID-19 and flu are negative. CT chest without contrast to further evaluate the opacity-- showed wedge shaped regions of consolidation in the right lung consistent with pulmonary infarcts. There is also small right pleural effusion. Review of Systems REVIEW OF SYSTEMS: CONSTITUTIONAL: No fever, no malaise, no fatigue. HEENT: No recent visual problems or hearing problems. Denied any sore throat. CARDIOVASCULAR: No chest pain, orthopnea, PND, no palpitations, no syncope. PULMONARY: No shortness of breath, no cough, no hemoptysis. GASTROINTESTINAL: No diarrhea, no nausea, no vomiting, no abdominal pain. NEUROLOGICAL: No headaches, no weakness, no numbness. HEMATOLOGICAL: Denies any bleeding or petechiae. GENITOURINARY: Denies any burning micturition, frequency, or urgency. MUSCULOSKELETAL/RHEUMATOLOGICAL: Denies any joint pain, swelling, or any muscle pain. ENDOCRINE: Denies any polyuria or polydipsia. The rest of the 14-point review of systems is negative. Past Medical History Past Medical History: Atrial Flutter, Heart Failure, COPD, Deep Vein Thrombosis (DVT), GERD/Reflux, Hyperlipidemia, Hypertension, Pneumonia, Renal Disease, Sl eep Apnea/CPAP/BIPAP Additional Past Medical History / Comment(s): RETRO PERITONEAL FIBROSIS, HX OF DVT 2002, GOUT, SLEEP APNEA- NO MACHINE AT THIS TIME., STATES , STATES LEFT KIDNEY NOT FUNCTIONING, RIGHT KIDNEY STENT. BACK PAIN. , History of Any Multi-Drug Resistant Organisms: None Reported Past Surgical History: Joint Replacement Additional Past Surgical History / Comment(s): TOTAL LEFT KNEE, SERA FILTER (RIGHT GROIN), Past Anesthesia/Blood Transfusion Reactions: No Reported Reaction Past Psychological History: Anxiety Smoking Status: Former smoker Past Alcohol Use History: None Reported Past Drug Use History: None Reported - Past Family History Mother Family Medical History: No Reported History Medications and Allergies Home Medications Medication Instructions Recorded Confirmed Type Atorvastatin [Lipitor] 40 mg PO PC-SUPPER 08/21/20 11/24/21 History Rivaroxaban [Xarelto] 20 mg PO PC-SUPPER 08/21/20 11/24/21 History Spironolactone [Aldactone] 25 mg PO PC-SUPPER 08/21/20 11/24/21 History ALPRAZolam [Xanax] 2 mg PO TID 08/22/20 11/24/21 History HYDROcodone/APAP 10-325MG [[place] 1 tab PO TID 08/22/20 11/24/21 History 10-325] Azithromycin [Zithromax Z Pack] 250 mg PO DAILY #6 tab 11/19/21 11/24/21 Rx Clobetasol Propionate [Temovate 1 applic TOPICAL BID 11/19/21 11/24/21 History 0.05% Cream] Ergocalciferol [Vitamin D2 (1250 1,250 mcg PO MO 11/19/21 11/24/21 History Mcg = 65160 Iu)] Furosemide [Lasix] 40 mg PO PC-SUPPER 11/19/21 11/24/21 History Losartan Potassium 100 mg PO PC-SUPPER 11/19/21 11/24/21 History Metoprolol Succinate [Toprol XL] 100 mg PO PC-SUPPER 11/19/21 11/24/21 History Mometasone Furoate [Elocon 0.1% 1 applic TOPICAL BID 11/19/21 11/24/21 History Top Soln] allopurinoL [Zyloprim] 200 mg PO PC-SUPPER PRN 11/19/21 11/24/21 History calcitrioL [Rocaltrol] 0.25 mcg PO MO 11/19/21 11/24/21 History Allergies Allergy/AdvReac Type Severity Reaction Status Date / Time propoxyphene napsylate AdvReac Abdominal Verified 11/24/21 16:23 [From Darvocet-N 100] Pain Physical Exam Vitals: Vital Signs Temp Pulse Resp BP Pulse Ox 11/24/21 17:55 100 18 161/83 96 11/24/21 13:11 98.9 F 100 24 128/85 97 Intake and Output 11/24/21 11/24/21 11/24/21 06:59 14:59 22:59 Other: Weight 132.449 kg HEAD: Normal with no signs of head trauma. EYES: PERRLA, EOMI, conjunctiva normal, no discharge. ENT: Hearing grossly intact, normal oropharynx. RESPIRATORY: Clear breath sounds bilaterally. No wheezes, rales, or rhonchi. No hypoxia. Very mild increased work of breathing. C/V: Tachycardic. S1 and S2 auscultated. No peripheral edema. Peripheral pulses 2+ and intact throughout. ABD: Abd is soft, nontender, nondistended EXT: Normal range of motion, no obvious deformity SKIN: No rashes or lesions observed on exposed skin. NEURO: Alert and oriented x 4. Cranial nerves II-XII intact. No focal sensory or strength deficits. Results CBC & Chem 7: 11/24/21 14:08 11/24/21 14:08 Labs: Abnormal Lab Results - Last 24 Hours (Table) 11/24/21 11/24/21 Range/Units 14:08 14:08 WBC 13.6 H (3.8-10.6) k/uL RBC 3.90 L (4.30-5.90) m/uL Hgb 12.2 L (13.0-17.5) gm/dL Hct 38.1 L (39.0-53.0) % Neutrophils # 10.8 H (1.3-7.7) k/uL Eosinophils # 0.9 H (0-0.7) k/uL Sodium 135 L (137-145) mmol/L Potassium 5.3 H (3.5-5.1) mmol/L Carbon Dioxide 19 L (22-30) mmol/L BUN 49 H (9-20) mg/dL Creatinine 3.29 H (0.66-1.25) mg/dL Albumin 3.4 L (3.5-5.0) g/dL Assessment and Plan Assessment: 1. Pulmonary infarction; suspected pulmonary embolism of right lung - Patient discussed with pulmonary service and is recommended to be started on high-intensity heparin; consult has been placed for on-call [facility] physician and they will see patient tomorrow - 2-D echo ordered for right heart strain - Bilateral lower extremity venous Doppler is ordered 2. Acute on chronic kidney disease; patient has been placed on IV fluid hydration in form of normal saline at a rate of 100 mL an hour; we will monitor strict KHADRA's, daily weights, renal function and electrolytes 3. Leukocytosis; possible pneumonia; patient hasn't placed on IV ceftriaxone and azithromycin; we will monitor CBC, CRP and pro-calcitonin; pulmonary to see patient and make further recommendations 4. Hyperkalemia; likely related to worsening renal failure; we will monitor electrolytes closely and make recommendations accordingly 5. History of atrial fibrillation; remains rate controlled; patient is on oral anticoagulation at home 6. Hypertension; metoprolol 100 mg daily 7. Hyperlipidemia; Lipitor 40 mg daily DVT prophylaxis; SCDs/systemic anticoagulation CODE STATUS; full code
[2021-11-24] MEDS: METOPROLOL SUCCINATE (ER) 100 MG TAB.ER.24H PO SCH (22:09)
[2021-11-24] MEDS: SPIRONOLACTONE 25 MG TAB PO SCH (22:09)
[2021-11-24] MEDS: LOSARTAN 50 MG TAB PO SCH (22:09)
[2021-11-24] MEDS: ATORVASTATIN 40 MG TAB PO SCH (22:09)
[2021-11-24] MEDS: FUROSEMIDE 40 MG TAB PO SCH (22:09)
[2021-11-25] MEDS: ALPRAZolam 1 MG TAB PO SCH ×4 (00:15→22:22)
[2021-11-25] MEDS: HYDROcodone/APAP 10-325MG 1 EACH TAB PO SCH ×5 (00:15→22:22)
[2021-11-25 05:53] LABS: Basophils % (A) 0 %; Eosinophils # (A) 0.6 k/uL (0-0.7); Eosinophils % (A) 6 %; HCT 36.9 % (39.0-53.0); HGB 11.7 gm/dL (13.0-17.5); Hypochromasia Slight; Lymphocytes # (A) 1.1 k/uL (1.0-4.8); Lymphocytes % (A) 10 %; MCH 31.9 pg (25.0-35.0); MCHC 31.7 g/dL (31.0-37.0); MCV 100.7 fL (80.0-100.0); Macrocytosis Slight; Mean Platelet Volume 8.4; Monocytes # (A) 0.6 k/uL (0-1.0); Monocytes % (A) 6 %; Neutrophils # (A) 8.5 k/uL (1.3-7.7); Neutrophils % (A) 76 %; Platelet Count 323 k/uL (150-450); RBC 3.67 m/uL (4.30-5.90); RDW 14.4 % (11.5-15.5); WBC 11.1 k/uL (3.8-10.6)
[2021-11-25 06:30] LABS: Calcium 8.6 mg/dL (8.4-10.2); Potassium 5.6 mmol/L (3.5-5.1)
--- NOTE | 2021-11-25 08:21 | NM ---
EXAMINATION TYPE: NM pul vent and perfuse DATE OF EXAM: 11/25/2021 COMPARISON: Radiograph same day HISTORY: 61-year-old male pulmonary infarct, evaluate for PE. TECHNIQUE: Utilizing inhalation of 66.0 mCi Tc 99m DTPA aerosol and intravenous injection of 5.11 mC i of Tc 99m MAA, ventilation and perfusion images are acquired post injection in multiple projections . FINDINGS: There is a moderate to large sized triple matched defect at the periphery of the right base. Otherwis e, no mismatched perfusion defects. IMPRESSION: Intermediate probability for pulmonary embolus by PIOPED criteria.
[2021-11-25] MEDS: AZITHROMYCIN 500 MG TAB PO SCH (08:24)
[2021-11-25] MEDS: HEPARIN SOD,PORK IN 0.45% NACL 25,000 UNIT in 0.45% NACL 1 250ML.BAG IV SCH (08:24)
--- NOTE | 2021-11-25 08:25 | XR ---
EXAMINATION TYPE: XR chest 2V DATE OF EXAM: 11/25/2021 COMPARISON: 11/24/2021 HISTORY: 61-year-old male pneumonia TECHNIQUE: PA and lateral views FINDINGS: Heart borderline enlarged. Dextroconvex scoliosis thoracic spine. Mild interstitial prominence. Focal opacity at the right base persists with trace effusion. IMPRESSION: 1. Borderline cardiomegaly. Interstitial prominence which appears mostly chronic. Correlate to exclud e mild pulmonary vascular congestion. 2. Continued large area of focal airspace disease at the right base with trace effusion.
[2021-11-25] MEDS ORDERED: AZITHROMYCIN 500 MG in SODIUM CHLORIDE 0.9% 250 ML IVPB SCH (09:00)
--- NOTE | 2021-11-25 09:44 | P.GSCN ---
History of Present Illness Consult date: 11/25/21 Reason for Consult: Probable pulmonary embolism, pulmonary infarct Requesting physician: Jaime Yoon History of present illness: This is a pleasant 61-year-old -[place] male with a past medical history of DVT on Xarelto and has IVC filter, atrial flutter with history of ablation, retroperitoneal fibrosis, heart failure, COPD, GERD, hyperlipidemia, hypertension, sleep apnea, and chronic renal disease who presented to the emergency department with complaints of shortness of breath, cough, with fever and chills at home. Apparently patient states he has had symptoms for approximately 2 weeks. States he received his cold. Maintain posterior shot about 2 weeks ago and the next day he started having fevers and body aches. It then progressed into a cough and shortness of breath. He was seen and evaluated in the emergency department on 11/19/2021 for pneumonia. It was recommended at that time that the patient be admitted to the hospital, however he declined and left AGAINST MEDICAL ADVICE. He was given a dose of IV antibiotics prior to admission and a azithromycin on discharge. The patient states he is compliant with his Xarelto. During his last admission he had a pulmonary perfusion test that showed low probability for pulmonary embolism. Patient had a CT of the chest without contrast that showed peripheral wedge-shaped regions of consolidation/ground glass densities within the right middle and lower lobes most consistent with pulmonary infarcts. Small right pleural effusion. Nonspecific mediastinal adenopathy which may be reactive. Of vascular surgery was consulted for possible pulmonary embolism/pulmonary infarcts. Patient was also noted to be in atrial flutter on admission. Venous duplex negative for DVT bilateral lower extremities. Chest x-ray reports borderline cardiomegaly. Interstitial prominence which appears mostly chronic. Correlate to exclude mild pulmonary vascular congestion. Continuing large area of focal airspace disease in the right base with trace effusion. Pulmonary perfusion study shows intermediate probability for pulmonary embolus. Moderate to large sided triple matched defect at the periphery of the right base. Otherwise no mismatch perfusion defects. Patient states cough has improved, he states he is not bringing anything up at this time. Breathing is improved at rest. He does not require any oxygen. Troponins were negative 2. Temperature 99.3 heart rate 80 respiratory rate 18 blood pressure 142/73 oxygen saturation 97% on room air. Patient denies any chest pain, abdominal pain, nausea or vomiting. Review of Systems A 14 point review systems was completed all pertinent positives and negatives as stated in the HPI. Past Medical History Past Medical History: Atrial Flutter, Heart Failure, COPD, Deep Vein Thrombosis (DVT), GERD/Reflux, Hyperlipidemia, Hypertension, Pneumonia, Renal Disease, Sleep Apnea/CPAP/BIPAP Additional Past Medical History / Comment(s): RETRO PERITONEAL FIBROSIS, HX OF DVT 2002, GOUT, SLEEP APNEA- NO MACHINE AT THIS TIME., STATES , STATES LEFT KIDNEY NOT FUNCTIONING, RIGHT KIDNEY STENT. BACK PAIN. , History of Any Multi-Drug Resistant Organisms: None Reported Past Surgical History: Joint Replacement Additional Past Surgical History / Comment(s): TOTAL LEFT KNEE, SERA FILTER (RIGHT GROIN), Past Anesthesia/Blood Transfusion Reactions: No Reported Reaction Past Psychological History: Anxiety Smoking Status: Former smoker Past Alcohol Use History: None Reported Additional Past Alcohol Use History / Comment(s): QUIT SMOKING OCTOBER 2015. SMOKED 4-5 CIGARETTES PER DAY. SMOKED APPROX 15 YEARS. Past Drug Use History: None Reported - Past Family History Mother Family Medical History: No Reported History Medications and Allergies Home Medications Medication Instructions Recorded Confirmed Type Atorvastatin [Lipitor] 40 mg PO PC-SUPPER 08/21/20 11/24/21 History Rivaroxaban [Xarelto] 20 mg PO PC-SUPPER 08/21/20 11/24/21 History Spironolactone [Aldactone] 25 mg PO PC-SUPPER 08/21/20 11/24/21 History ALPRAZolam [Xanax] 2 mg PO TID 08/22/20 11/24/21 History HYDROcodone/APAP 10-325MG [[place] 1 tab PO TID 08/22/20 11/24/21 History 10-325] Azithromycin [Zithromax Z Pack] 250 mg PO DAILY #6 tab 11/19/21 11/24/21 Rx Clobetasol Propionate [Temovate 1 applic TOPICAL BID 11/19/21 11/24/21 History 0.05% Cream] Ergocalciferol [Vitamin D2 (1250 1,250 mcg PO MO 11/19/21 11/24/21 History Mcg = 29015 Iu)] Furosemide [Lasix] 40 mg PO PC-SUPPER 11/19/21 11/24/21 History Losartan Potassium 100 mg PO PC-SUPPER 11/19/21 11/24/21 History Metoprolol Succinate [Toprol XL] 100 mg PO PC-SUPPER 11/19/21 11/24/21 History Mometasone Furoate [Elocon 0.1% 1 applic TOPICAL BID 11/19/21 11/24/21 History Top Soln] allopurinoL [Zyloprim] 200 mg PO PC-SUPPER PRN 11/19/21 11/24/21 History calcitrioL [Rocaltrol] 0.25 mcg PO MO 11/19/21 11/24/21 History Allergies Allergy/AdvReac Type Severity Reaction Status Date / Time propoxyphene napsylate AdvReac Abdominal Verified 11/24/21 16:23 [From Darvocet-N 100] Pain Surgical - Exam Vital Signs Temp Pulse Resp BP Pulse Ox 98.9 F 100 24 128/85 97 11/24/21 13:11 11/24/21 13:11 11/24/21 13:11 11/24/21 13:11 11/24/21 13:11 General appearance: The patient is alert, oriented, appears in no acute distress. Obese. HET: Head is normocephalic and atraumatic. Pupils are equal and reactive. Neck: Supple without lymphadenopathy. Trachea midline. Heart: S1 S2. Regular rate and rhythm. Lungs: Bilateral expiratory wheeze. Normal expansion. Nonlabored breathing. Abdomen: Soft, nontender, nondistended. Extremities: Normal skin color and turgor. No cyanosis, rash, ulceration, clubbing, or edema. +2 palpable radial pulse bilaterally. Neurological: No focal deficits. Strength and sensation are grossly intact. Results - Labs 11/25/21 05:24 11/25/21 05:24 Abnormal Lab Results - Last 24 Hours (Table) 11/24/21 11/24/21 11/24/21 Range/Units 14:08 14:08 19:41 WBC 13.6 H (3.8-10.6) k/uL RBC 3.90 L (4.30-5.90) m/uL Hgb 12.2 L (13.0-17.5) gm/dL Hct 38.1 L (39.0-53.0) % MCV (80.0-100.0) fL Neutrophils # 10.8 H (1.3-7.7) k/uL Eosinophils # 0.9 H (0-0.7) k/uL APTT 94.7 H (22.0-30.0) sec Sodium 135 L (137-145) mmol/L Potassium 5.3 H (3.5-5.1) mmol/L Chloride (98-107) mmol/L Carbon Dioxide 19 L (22-30) mmol/L BUN 49 H (9-20) mg/dL Creatinine 3.29 H (0.66-1.25) mg/dL Glucose (74-99) mg/dL Albumin 3.4 L (3.5-5.0) g/dL 11/25/21 11/25/21 11/25/21 Range/Units 05:24 05:24 05:24 WBC 11.1 H (3.8-10.6) k/uL RBC 3.67 L (4.30-5.90) m/uL Hgb 11.7 L (13.0-17.5) gm/dL Hct 36.9 L (39.0-53.0) % MCV 100.7 H (80.0-100.0) fL Neutrophils # 8.5 H (1.3-7.7) k/uL Eosinophils # (0-0.7) k/uL APTT 41.8 H (22.0-30.0) sec Sodium (137-145) mmol/L Potassium 5.6 H (3.5-5.1) mmol/L Chloride 111 H (98-107) mmol/L Carbon Dioxide (22-30) mmol/L BUN 44 H (9-20) mg/dL Creatinine 2.86 H (0.66-1.25) mg/dL Glucose 110 H (74-99) mg/dL Albumin (3.5-5.0) g/dL Diabetes panel 11/24/21 11/25/21 Range/Units 14:08 05:24 Sodium 135 L 140 (137-145) mmol/L Potassium 5.3 H 5.6 H (3.5-5.1) mmol/L Chloride 106 111 H (98-107) mmol/L Carbon Dioxide 19 L 22 (22-30) mmol/L BUN 49 H 44 H (9-20) mg/dL Creatinine 3.29 H 2.86 H (0.66-1.25) mg/dL Glucose 99 110 H (74-99) mg/dL Calcium 8.8 8.6 (8.4-10.2) mg/dL AST 20 (17-59) U/L ALT 12 (4-49) U/L Alkaline Phosphatase 109 (38-126) U/L Total Protein 7.1 (6.3-8.2) g/dL Albumin 3.4 L (3.5-5.0) g/dL Calcium panel 11/24/21 11/25/21 Range/Units 14:08 05:24 Calcium 8.8 8.6 (8.4-10.2) mg/dL Albumin 3.4 L (3.5-5.0) g/dL Pituitary panel 11/24/21 11/25/21 Range/Units 14:08 05:24 Sodium 135 L 140 (137-145) mmol/L Potassium 5.3 H 5.6 H (3.5-5.1) mmol/L Chloride 106 111 H (98-107) mmol/L Carbon Dioxide 19 L 22 (22-30) mmol/L BUN 49 H 44 H (9-20) mg/dL Creatinine 3.29 H 2.86 H (0.66-1.25) mg/dL Glucose 99 110 H (74-99) mg/dL Calcium 8.8 8.6 (8.4-10.2) mg/dL Adrenal panel 11/24/21 11/25/21 Range/Units 14:08 05:24 Sodium 135 L 140 (137-145) mmol/L Potassium 5.3 H 5.6 H (3.5-5.1) mmol/L Chloride 106 111 H (98-107) mmol/L Carbon Dioxide 19 L 22 (22-30) mmol/L BUN 49 H 44 H (9-20) mg/dL Creatinine 3.29 H 2.86 H (0.66-1.25) mg/dL Glucose 99 110 H (74-99) mg/dL Calcium 8.8 8.6 (8.4-10.2) mg/dL Total Bilirubin 1.3 (0.2-1.3) mg/dL AST 20 (17-59) U/L ALT 12 (4-49) U/L Alkaline Phosphatase 109 (38-126) U/L Total Protein 7.1 (6.3-8.2) g/dL Albumin 3.4 L (3.5-5.0) g/dL - Imaging Chest x-ray: report reviewed CT scan - chest: report reviewed (As stated in the HPI) Additional studies: Pulmonary perfusion study reviewed as stated in the HPI Assessment and Plan Assessment: 1. Intermediate probability for pulmonary embolus per pulmonary perfusion study 2. Pulmonary infarcts per chest CT scan without contrast 3. Shortness of breath 4. Atrial flutter 5. Recent COVID-19 booster (Pfizer) 6. History of DVT on Xarelto 7. Obesity 8. History of heart failure 9. Hypertension 10. Hyperlipidemia 11. Obstructive sleep apnea Plan: 1. May discontinue heparin drip and resume Xarelto 2. Continue with recommendations from pulmonology 3. Await echocardiogram results 4. There is no indication for any vascular surgical intervention. Thank you for this consultation, we will continue to follow. The impression and plan of care has been dictated as directed. Dr. Barrera I performed a history and examination of this patient, discussed the same with the dictator. I agree with the dictator's note ,documented as a scribe. Any additional findings or plans will be noted.
[2021-11-25] MEDS ORDERED: SODIUM ZIRCONIUM CYCLOSILICATE 10 GM PACKET PO ONE (10:00)
--- NOTE | 2021-11-25 12:51 | P.CNPUL ---
History of Present Illness Consult date: 11/25/21 Requesting physician: Ryan Roman Reason for consult: pneumonia Chief complaint: Shortness of breath, cough, fever and chill History of present illness: This is a 61-year-old white male with history of multiple medical problems including previous history of DVT, atrial fibrillation, hypertension, chronic renal disease, patient presented to the ER a week ago, and he presented mostly with symptoms highly suggestive of pneumonia. Symptoms are mostly shortness of breath, productive cough, purulent sputum and at times blood-tinged sputum, he also had fever and chills. Patient was advised to be admitted last week, however he left AMA on Zithromax. Came back yesterday, complaining of similar symptoms. And not feeling any better. Again he describes the cough as productive with greenish and dark brown sputum. Patient is normally maintained on Xarelto for his previous history of DVT, and for his history of atrial fibrillation/flutter. His chest x-ray and CT of the chest showed evidence of consolidation in the right lower lobe, and a VQ scan was done and showed intermediate probability for pulmonary embolism. The radiologist raised the possibility of consolidation versus pulmonary infarct. However the clinical history is more or less suggestive of pneumonia rather than pulmonary embolism with infarct. Patient was also noted to have a small right-sided pleural effusi on. Patient was admitted and this consult was initiated. CBC showed leukocytosis at admission with WBC count of 13.6. D-dimer was elevated at 8.83. Pro-calcitonin is pending. After evaluating the patient, I recommended that the patient goes back on his eliquis, I also recommended that we continue his antibiotics Rocephin and Zithromax. Patient is not a candidate for CT angiogram of the chest, hence this will not be done today considering his renal functioning. Review of Systems CONSTITUTIONAL: Fever and chills as noted in HPI. HEENT: Negative. CARDIOVASCULAR: Negative. PULMONARY: As noted in HPI. GASTROINTESTINAL: Negative. NEUROLOGICAL: Negative HEMATOLOGICAL: Negative, history of DVT, patient is on eliquis. GENITOURINARY: Negative MUSCULOSKELETAL/RHEUMATOLOGICAL: Negative. ENDOCRINE: Negative Past Medical History Past Medical History: Atrial Flutter, Heart Failure, COPD, Deep Vein Thrombosis (DVT), GERD/Reflux, Hyperlipidemia, Hypertension, Pneumonia, Renal Disease, Sleep Apnea/CPAP/BIPAP Additional Past Medical History / Comment(s): RETRO PERITONEAL FIBROSIS, HX OF DVT 2002, GOUT, SLEEP APNEA- NO MACHINE AT THIS TIME., STATES , STATES LEFT KIDNEY NOT FUNCTIONING, RIGHT KIDNEY STENT. BACK PAIN. , History of Any Multi-Drug Resistant Organisms: None Reported Past Surgical History: Joint Replacement Additional Past Surgical History / Comment(s): TOTAL LEFT KNEE, SERA FILTER (RIGHT GROIN), Past Anesthesia/Blood Transfusion Reactions: No Reported Reaction Past Psychological History: Anxiety Smoking Status: Former smoker Past Alcohol Use History: None Reported Additional Past Alcohol Use History / Comment(s): QUIT SMOKING OCTOBER 2015. SMOKED 4-5 CIGARETTES PER DAY. SMOKED APPROX 15 YEARS. Past Drug Use History: None Reported - Past Family History Mother Family Medical History: No Reported History Medications and Allergies Home Medications Medication Instructions Recorded Confirmed Type Atorvastatin [Lipitor] 40 mg PO PC-SUPPER 08/21/20 11/24/21 History Rivaroxaban [Xarelto] 20 mg PO PC-SUPPER 08/21/20 11/24/21 History Spironolactone [Aldactone] 25 mg PO PC-SUPPER 08/21/20 11/24/21 History ALPRAZolam [Xanax] 2 mg PO TID 08/22/20 11/24/21 History HYDROcodone/APAP 10-325MG [[place] 1 tab PO TID 08/22/20 11/24/21 History 10-325] Azithromycin [Zithromax Z Pack] 250 mg PO DAILY #6 tab 11/19/21 11/24/21 Rx Clobetasol Propionate [Temovate 1 applic TOPICAL BID 11/19/21 11/24/21 History 0.05% Cream] Ergocalciferol [Vitamin D2 (1250 1,250 mcg PO MO 11/19/21 11/24/21 History Mcg = 55487 Iu)] Furosemide [Lasix] 40 mg PO PC-SUPPER 11/19/21 11/24/21 History Losartan Potassium 100 mg PO PC-SUPPER 11/19/21 11/24/21 History Metoprolol Succinate [Toprol XL] 100 mg PO PC-SUPPER 11/19/21 11/24/21 History Mometasone Furoate [Elocon 0.1% 1 applic TOPICAL BID 11/19/21 11/24/21 History Top Soln] allopurinoL [Zyloprim] 200 mg PO PC-SUPPER PRN 11/19/21 11/24/21 History calcitrioL [Rocaltrol] 0.25 mcg PO MO 11/19/21 11/24/21 History Allergies Allergy/AdvReac Type Severity Reaction Status Date / Time propoxyphene napsylate AdvReac Abdominal Verified 11/24/21 16:23 [From Darvocet-N 100] Pain Physical Exam Vitals: Vital Signs Temp Pulse Pulse Resp BP BP Pulse Ox 11/25/21 12:00 98.2 F 73 18 147/87 98 11/25/21 08:00 98.3 F 80 18 140/86 99 11/25/21 04:00 99.3 F 80 18 142/73 97 11/25/21 02:00 78 20 11/25/21 00:00 97.8 F 78 20 138/81 94 L 11/24/21 20:45 97.9 F 87 20 131/67 97 11/24/21 20:00 87 20 11/24/21 17:55 100 18 161/83 96 11/24/21 13:11 98.9 F 100 24 128/85 97 Intake and Output 11/24/21 11/25/21 11/25/21 22:59 06:59 14:59 Intake Total 232.317 0 158.317 Balance 232.317 0 158.317 Intake: IV 20 Invasive Line 1 10 Invasive Line 2 10 Intake, IV Titration 112.317 0 138.317 Amount Heparin Sod,Pork in 0.45% 112.317 0 138.317 NaCl 25,000 unit In 0.45 % NaCl 1 250ml.bag @ 17. 365 UNITS/KG/HR 23 mls/hr IV .[id number] [facility] Rx#: [id number] Oral 120 Other: Voiding Method Toilet Toilet # Voids 1 Weight 132.449 kg 128.2 kg 128.7 kg Physical Exam: Revealed a 61-year-old male in no distress. Very pleasant. Head: Atraumatic, normocephalic. HEENT:[Neck is supple.] [No neck masses.] [No thyromegaly.] [No JVD.] Chest: [Clear throughout, no crackles, no rhonchi, no wheezes.] Slightly diminished breath sounds at the right base. No rhonchi and no wheezes Cardiac Exam: [Normal S1 and S2, no S3 gallop, no murmur.] Abdomen: [Soft, nontender, no megaly, no rebound, no guarding, normal bowel sounds.] Extremities: [No clubbing, no edema, no cyanosis.] Neurological Exam: [No focal neurologic deficit.] Alert oriented 3. Psychiatric: Normal mood affect and normal mental status examination. Skin: No rashes. Results - Laboratory Findings CBC and BMP: 11/25/21 05:24 11/25/21 05:24 PT/INR, D-dimer PT 10.7 sec (9.0-12.0) 11/24/21 14:08 INR 1.0 (<1.2) 11/24/21 14:08 D-Dimer 8.83 mg/L FEU (<0.60) H 11/25/21 10:54 Abnormal lab findings: Abnormal Labs 11/24/21 11/24/21 11/24/21 14:08 14:08 19:41 WBC 13.6 H RBC 3.90 L Hgb 12.2 L Hct 38.1 L MCV Neutrophils # 10.8 H Eosinophils # 0.9 H APTT 94.7 H D-Dimer Sodium 135 L Potassium 5.3 H Chloride Carbon Dioxide 19 L BUN 49 H Creatinine 3.29 H Glucose Albumin 3.4 L 11/25/21 11/25/21 11/25/21 05:24 05:24 05:24 WBC 11.1 H RBC 3.67 L Hgb 11.7 L Hct 36.9 L MCV 100.7 H Neutrophils # 8.5 H Eosinophils # APTT 41.8 H D-Dimer Sodium Potassium 5.6 H Chloride 111 H Carbon Dioxide BUN 44 H Creatinine 2.86 H Glucose 110 H Albumin 11/25/21 10:54 WBC RBC Hgb Hct MCV Neutrophils # Eosinophils # APTT D-Dimer 8.83 H Sodium Potassium Chloride Carbon Dioxide BUN Creatinine Glucose Albumin - Diagnostic Findings CT scan - chest: image reviewed (As noted in HPI) Assessment and Plan Assessment: Impression: Acute community-acquired pneumonia, doubt pulmonary embolism based on the clinical history. Right lower lobe consolidation and right sided parapneumonic pleural effusion, small, not large enough to consider thoracentesis. History of DVT, negative Doppler on this admission. Acute on chronic kidney injury, patient is being followed by nephrology on outpatient basis. Not a candidate for CT angiogram of the chest. Leukocytosis secondary to pneumonia Chronic atrial fibrillation Benign essential hypertension Dyslipidemia Recommendation: Continue antibiotics/Rocephin and Zithromax Continue/resume eliquis VQ scan is basically nondiagnostic of pulmonary embolism. Resume home meds. Awaiting pro calcitonin level. We'll continue to follow. Time with Patient: Greater than 30
--- NOTE | 2021-11-25 13:53 | CONS ---
CONSULTATION This is a 61-year-old gentleman with multiple medical problems, including hypertension, prior episodes of DVT, dyslipidemia, who presented to the hospital yesterday with symptoms of shortness of breath, productive cough, fever and chills. The patient apparently was evaluated on November 19 for pneumonia and was advised admission but left against medical advice. He does not have any chest pain. Does not have leg edema, PND or orthopnea. There is no prior history of coronary artery disease or congestive heart failure. The patient had a CT scan of the chest on this admission that revealed a pulmonary infarct. He has chronic renal failure and his creatinine is around 2.3. EKG on this admission revealed atypical atrial flutter with controlled ventricular rate. The patient carries a history of prior episode of atrial fibrillation for which he underwent cardioversion. PAST MEDICAL HISTORY: Significant for cardiac arrhythmia, hypertension, dyslipidemia. MEDICATIONS: Medications at home include: Zyloprim, Aldactone, Xarelto, Toprol-XL, losartan, [place], Lasix, Z-Duane, Lipitor and Xanax. ALLERGIES: DARVOCET. FAMILY HISTORY: Negative for premature coronary artery disease. SOCIAL HISTORY: Negative for current smoking, EtOH abuse or drug abuse. REVIEW OF SYSTEMS: HEENT is unremarkable. Cardiac as described above. Respiratory as described above. GI negative. Genitourinary negative. ALLERGY/IMMUNOLOGY negative. Skin negative. Musculoskeletal significant for arthritis. Psychosocial: Negative: Derm negative. Constitutional negative. Oncological negative. TAX SPECIALIST negative. EXAM: Comfortable at rest. Heart rate is 80 beats per minute, irregular. Blood pressure is 140/70, respiratory 18, O2 saturation is 97% on room air. There is no jugular venous distention. Carotid upstroke is diminished. There is no bruit. Chest exam reveals good air entry bilaterally. I do not hear any crackles or rhonchi. Heart exam reveals first and second heart sounds. No murmur. Irregular rhythm. Abdomen: Soft. Exam of extremities did not reveal any edema. Peripheral pulses are felt. LAB: Show a BUN of 44, creatinine of 2.8, potassium of 5.6, hemoglobin is 7.7, platelet count is 323. ASSESSMENT: 1. Atypical atrial flutter with controlled ventricular rate. 2. Pulmonary infarction. 3. Chronic renal failure. 4. Hypertension. PLAN: Patient is on IV heparin which I am going to continue. I will obtain a 2D echo to assess his LV function. We need to find an alternative coverage for long-term anticoagulation because of the chronic renal failure. Xarelto is not a good choice. We will see if he is covered for Eliquis. MMODL / IJN: [id number] /
[2021-11-25] MEDS: APIXABAN 5 MG TAB PO SCH ×2 (13:59→22:20)
[2021-11-25] MEDS ORDERED: RIVAROXABAN 15 MG TAB PO SCH (17:30)
[2021-11-25] MEDS: LOSARTAN 50 MG TAB PO SCH (17:40)
[2021-11-25] MEDS: ATORVASTATIN 40 MG TAB PO SCH (17:40)
[2021-11-25] MEDS: SPIRONOLACTONE 25 MG TAB PO SCH (17:40)
[2021-11-25] MEDS: METOPROLOL SUCCINATE (ER) 100 MG TAB.ER.24H PO SCH (17:40)
[2021-11-25] MEDS: FUROSEMIDE 40 MG TAB PO SCH (17:40)
[2021-11-26 01:25] VITALS: RESP 18
[2021-11-26 08:39] VITALS: BP 153/77; PULSE 107; TEMP 97.9
[2021-11-26] MEDS: AZITHROMYCIN 500 MG TAB PO SCH (08:39)
[2021-11-26] MEDS: APIXABAN 5 MG TAB PO SCH (08:39)
[2021-11-26] MEDS: ALPRAZolam 1 MG TAB PO SCH (08:39)
[2021-11-26] MEDS: HYDROcodone/APAP 10-325MG 1 EACH TAB PO SCH ×2 (08:40→14:44)
--- NOTE | 2021-11-26 09:31 | CA ---
Transthoracic Echo Report Name: Farhat Henson Age: 61 Gender: M : 1960 Exam Date: 11/25/2021 08:22 Exam Location: [facility] Ht (in): 72 Wt (lb): 282 Ordering Physician: Jaime Yoon MD Attending/Referring Phys: [employer]er [employer] Adina Harris RDCS Procedure CPT: Indications: pulm infarct, concern for PE Cardiac Hx: Technical Quality: Fair Contrast 1: Total Dose (mL): Contrast 2: Total Dose (mL): MEASUREMENTS (Male / Female) Normal Values 2D ECHO LV Diastolic Diameter PLAX 4.4 cm 4.2 - 5.9 / 3.9 - 5.3 cm LV Systolic Diameter PLAX 4.2 cm IVS Diastolic Thickness 1.1 cm 0.6 - 1.0 / 0.6 - 0.9 cm LVPW Diastolic Thickness 1.6 cm 0.6 - 1.0 / 0.6 - 0.9 cm LV Relative Wall Thickness 0.6 RV Internal Dim ED PLAX 3.7 cm LA Systolic Diameter LX 4.1 cm 3.0 - 4.0 / 2.7 - 3.8 cm LA Volume 121.1 cm??? 18 - 58 / 22 - 52 cm??? M-MODE Aortic Root Diameter MM 3.6 cm LA Systolic Diameter MM 4.5 cm LA Ao Ratio MM 1.3 MV E Point Septal Separation 0.6 cm AV Cusp Separation MM 2.1 cm DOPPLER MV Area PHT 5.8 cm??? Mitral E Point Velocity 99.4 cm/s Mitral A Point Velocity 40.3 cm/s Mitral E to A Ratio 2.5 MV Deceleration Time 131.3 ms MV E' Velocity 6.9 cm/s Mitral E to MV E' Ratio 14.3 TR Peak Velocity 364.0 cm/s TR Peak Gradient 53.0 mmHg Right Ventricular Systolic Press 57.5 mmHg FINDINGS Left Ventricle Mildly increased septal wall thickness. LV size is normal with normal wall thickness. There is inferobasal hypokinesia and ejection fraction is about 50% Right Ventricle Mild right ventricular dilatation. Moderate to severe pulmonary hypertension. No right heart strain detected. TAPSE 21 mm Right Atrium Normal right atrial size. Left Atrium Mildly increased left atrial diameter. Severely increased left atrial volume. Moderately increased left atrial area. Mitral Valve Mild mitral regurgitation. Aortic Valve No aortic stenosis. No aortic regurgitation. Tricuspid Valve Structurally normal tricuspid valve. [id number] tricuspid regurgitation. Pulmonic Valve Structurally normal pulmonic valve. Trace pulmonic regurgitation. Pericardium No pericardial effusion. Aorta Normal size aortic root and proximal ascending aorta. CONCLUSIONS LV size is normal with normal wall thickness there is inferobasal hypokinesia ejection fraction is 50%. There is moderate pulmonary hypertension. No evidence of any septal flattening. Mild to moderate tricuspid regurgitation and mild mitral regurgitation. No pericardial effusion Previewed by: Dr. Dayday Dill MD (Electronically Signed) Final Date: 26 November 2021 09:30
[2021-11-26] MEDS ORDERED: LEVOFLOXACIN 500 MG TAB PO STA (10:27)
--- NOTE | 2021-11-26 10:43 | P.PN ---
Subjective Progress Note Date: 11/26/21 Principal diagnosis: Shortness of breath Patient seen and examined today as a follow-up. No acute changes through the night. He's been afebrile. Oxygen saturation 95-98% on room air. He denies any chest pain or shortness of breath. He was started on Eliquis 5mg twice a day yesterday. Objective - Vital Signs Vital signs: Vital Signs Temp 97.9 F 11/26/21 08:38 Pulse 107 H 11/26/21 08:38 Resp 18 11/26/21 08:38 BP 153/77 11/26/21 08:38 Pulse Ox 97 11/26/21 08:38 FiO2 Intake & Output 11/25/21 11/26/21 11/26/21 18:59 06:59 18:59 Intake Total 589.302 90 Balance 589.302 90 Weight 128.7 kg Intake: IV 90 Invasive Line 1 20 Invasive Line 2 20 cefTRIAXone 2 gm In 50 Sodium Chloride 0.9% 50 ml @ 100 mls/hr IVPB ONCE [facility] Rx#:[id number] Intake, IV Titration 259.302 Amount Heparin Sod,Pork in 0.45% 259.302 NaCl 25,000 unit In 0.45 % NaCl 1 250ml.bag @ 17. 365 UNITS/KG/HR 23 mls/hr IV .[id number] [facility] Rx#: [id number] Oral 240 90 Other: Voiding Method Bedside Commode # Voids 2 - Exam General appearance: The patient is alert, oriented, appears in no acute distress. HET: Head is normocephalic and atraumatic. Neck: Supple without lymphadenopathy. Trachea midline. Heart: S1 S2. Regular rate and rhythm. Lungs: Clear to auscultation bilaterally. Nonlabored respirations. Abdomen: Soft, nontender, nondistended. Extremities: Normal skin color and turgor. Neurological: No focal deficits. Strength and sensation are grossly intact. - Labs CBC & Chem 7: 11/25/21 05:24 11/25/21 05:24 Labs: Abnormal Lab Results - Last 24 Hours (Table) 11/25/21 11/25/21 Range/Units 10:54 10:54 D-Dimer 8.83 H (<0.60) mg/L FEU Procalcitonin 0.52 H (0.02-0.09) ng/mL Microbiology - Last 24 Hours (Table) 11/24/21 14:30 Blood Culture - Preliminary Blood No Growth after 24 hours 11/24/21 14:08 Blood Culture - Preliminary Blood No Growth after 24 hours Assessment and Plan Assessment: 1. Intermediate probability for pulmonary embolus per pulmonary perfusion study 2. Pulmonary infarcts per chest CT scan without contrast 3. Shortness of breath 4. Atrial flutter 5. Recent COVID-19 booster (Pfizer) 6. History of DVT on Xarelto 7. Obesity 8. History of heart failure 9. Hypertension 10. Hyperlipidemia 11. Obstructive sleep apnea Plan: Continue [place] as ordered. Continue with recommendations from pulmonology. There is low probability for pulmonary embolism. CT chest images reviewed by Dr. Barrera. Does not feel that there are any pulmonary infarcts. There is no indication for any vascular surgical intervention. Patient is cleared by vascular surgery for discharge. Thank you for this consultation, we will sign off at this time. The impression and plan of care has been dictated as directed. Dr. Barrera I performed a history and examination of this patient, discussed the same with the dictator. I agree with the dictator's note ,documented as a scribe. Any additional findings or plans will be noted.
--- NOTE | 2021-11-26 11:54 | P.PN ---
Subjective HISTORY OF PRESENTING ILLNESS This is a pleasant 61-year-old male past medical history significant for typical atrial flutter s/p cardioversion on Xarelto, DVT, COPD, non-ischemic cardiomyopathy, hypertension, chronic kidney disease. He did follow with Dr. Ulrich in the past, last seen 2019. We have been asked to see in consultation for history of atrial fibrillation. Patient presented to the ER with complaints of shortness of breath, cough, with fever and chills for 2 weeks. He was evaluated previously in the ER 11/19/2021 for pneumonia, patient left AMA. CT Chest on admission revealed peripheral wedge-shaped regions of consolidation /ground glass densities within the right middle and lower lobes most consistent with pulmonary infarcts VQ scan revealed intermediate probability for pulmonary embolus Echocardiogram revealed EF of 50%, moderate to severe pulmonary hypertension, no evidence of any septal flattening, mild to moderate tricuspid regurgitation, mild mitral regurgitation 11/26/2021 Patient's hemoglobin bedside, no acute distress. He denies any chest pain or shortness of breath. He feels back to baseline. No complaints. Telemetry reviewed patient in atrial flutter with controlled ventricular rates. Meds: Eliquis 5 mg twice a day, atorvastatin 40 mg nightly, Lasix 40 mg daily, losartan 100 mg nightly, metoprolol succinate 20 mg nightly, spironolactone 25 mg daily PHYSICAL EXAMINATION Blood pressure 153/77, heart rate 70, afebrile, saturation 97% on room air CONSTITUTIONAL: No apparent distress. HEENT: Head is normocephalic. Pupils are equal, round. Sclerae anicteric. Mucous membranes of the mouth are moist. No JVD. No carotid bruit. CHEST EXAMINATION: Lungs are clear to auscultation. No chest wall tenderness is noted on palpation or with deep breathing. HEART EXAMINATION: Irregular rate and rhythm. S1, S2 heard. No murmurs, gallops or rub. ABDOMEN: Soft, nontender. Positive bowel sounds. EXTREMITIES: 2+ peripheral pulses, no lower extremity edema and no calf tenderness. NEUROLOGIC EXAMINATION: Patient is awake, alert and oriented x3. ASSESSMENT Pulmonary infarcts reported on CT scan chest Intermediate probability for pulmonary embolus per pulmonary perfusion study Atypical atrial flutter s/p previous cardioversion on Xarelto History of DVT COPD Non-ischemic cardiomyopathy Hypertension Chronic kidney disease PLAN Continue Eliquis, Xarelto has been discontinued Patient has coverage with Eliquis per pharmacy Continue home statin, lasix, losartan, beta dm, spironolactone From a cardiology perspective, patient is stable. Pulmonary following Follow up outpatient with Dr. Sears. Nurse practitioner note has been reviewed by physician. Signing provider agrees with the documented findings, assessment, and plan of care. Objective - Vital Signs Vital signs: Vital Signs Temp 98.2 F 11/25/21 12:00 Pulse 73 11/25/21 12:00 Resp 18 11/25/21 12:00 BP 147/87 11/25/21 12:00 Pulse Ox 98 11/25/21 12:00 FiO2 Intake & Output 11/24/21 11/25/21 11/25/21 18:59 06:59 18:59 Intake Total 232.317 158.317 Balance 232.317 158.317 Weight 132.449 kg 128.2 kg 128.7 kg Intake: IV 20 Invasive Line 1 10 Invasive Line 2 10 Intake, IV Titration 112.317 138.317 Amount Heparin Sod,Pork in 0.45% 112.317 138.317 NaCl 25,000 unit In 0.45 % NaCl 1 250ml.bag @ 17. 365 UNITS/KG/HR 23 mls/hr IV .[id number] [facility] Rx#: [id number] Oral 120 Other: Voiding Method Toilet # Voids 1 - Labs CBC & Chem 7: 11/25/21 05:24 11/25/21 05:24 Labs: Abnormal Lab Results - Last 24 Hours (Table) 11/24/21 11/24/21 11/24/21 Range/Units 14:08 14:08 19:41 WBC 13.6 H (3.8-10.6) k/uL RBC 3.90 L (4.30-5.90) m/uL Hgb 12.2 L (13.0-17.5) gm/dL Hct 38.1 L (39.0-53.0) % MCV (80.0-100.0) fL Neutrophils # 10.8 H (1.3-7.7) k/uL Eosinophils # 0.9 H (0-0.7) k/uL APTT 94.7 H (22.0-30.0) sec D-Dimer (<0.60) mg/L FEU Sodium 135 L (137-145) mmol/L Potassium 5.3 H (3.5-5.1) mmol/L Chloride (98-107) mmol/L Carbon Dioxide 19 L (22-30) mmol/L BUN 49 H (9-20) mg/dL Creatinine 3.29 H (0.66-1.25) mg/dL Glucose (74-99) mg/dL Albumin 3.4 L (3.5-5.0) g/dL 11/25/21 11/25/21 11/25/21 Range/Units 05:24 05:24 05:24 WBC 11.1 H (3.8-10.6) k/uL RBC 3.67 L (4.30-5.90) m/uL Hgb 11.7 L (13.0-17.5) gm/dL Hct 36.9 L (39.0-53.0) % MCV 100.7 H (80.0-100.0) fL Neutrophils # 8.5 H (1.3-7.7) k/uL Eosinophils # (0-0.7) k/uL APTT 41.8 H (22.0-30.0) sec D-Dimer (<0.60) mg/L FEU Sodium (137-145) mmol/L Potassium 5.6 H (3.5-5.1) mmol/L Chloride 111 H (98-107) mmol/L Carbon Dioxide (22-30) mmol/L BUN 44 H (9-20) mg/dL Creatinine 2.86 H (0.66-1.25) mg/dL Glucose 110 H (74-99) mg/dL Albumin (3.5-5.0) g/dL 11/25/21 Range/Units 10:54 WBC (3.8-10.6) k/uL RBC (4.30-5.90) m/uL Hgb (13.0-17.5) gm/dL Hct (39.0-53.0) % MCV (80.0-100.0) fL Neutrophils # (1.3-7.7) k/uL Eosinophils # (0-0.7) k/uL APTT (22.0-30.0) sec D-Dimer 8.83 H (<0.60) mg/L FEU Sodium (137-145) mmol/L Potassium (3.5-5.1) mmol/L Chloride (98-107) mmol/L Carbon Dioxide (22-30) mmol/L BUN (9-20) mg/dL Creatinine (0.66-1.25) mg/dL Glucose (74-99) mg/dL Albumin (3.5-5.0) g/dL
--- NOTE | 2021-11-26 12:09 | P.PN ---
Subjective Progress Note Date: 11/26/21 Principal diagnosis: Acute community-acquired pneumonia This is a 61-year-old white male with history of multiple medical problems including previous history of DVT, atrial fibrillation, hypertension, chronic renal disease, patient presented to the ER a week ago, and he presented mostly with symptoms highly suggestive of pneumonia. Symptoms are mostly shortness of breath, productive cough, purulent sputum and at times blood-tinged sputum, he also had fever and chills. Patient was advised to be admitted last week, however he left AMA on Zithromax. Came back yesterday, complaining of similar symptoms. And not feeling any better. Again he describes the cough as product madi with greenish and dark brown sputum. Patient is normally maintained on Xarelto for his previous history of DVT, and for his history of atrial fibrillation/flutter. His chest x-ray and CT of the chest showed evidence of consolidation in the right lower lobe, and a VQ scan was done and showed in termediate probability for pulmonary embolism. The radiologist raised the possibility of consolidation versus pulmonary infarct. However the clinical history is more or less suggestive of pneumonia rather than pulmonary embolism with infarct. Patient was also noted to have a small right-sided pleural effusion. Patient was admitted and this consult was initiated. CBC showed leukocytosis at admission with WBC count of 13.6. D-dimer was elevated at 8.83. Pro-calcitonin is pending. After evaluating the patient, I recommended that the patient goes back on his eliquis, I also recommended that we continue his antibiotics Rocephin and Zithromax. Patient is not a candidate for CT angiogram of the chest, hence this will not be done today considering his renal functioning. Reevaluated today on 11/26/21, patient is doing well, asymptomatic, feeling much better today compared to yesterday. Remains on antibiotics, placed back on Xarelto however the dose was adjusted for his renal profile, and apparently he was changed to eliquis by cardiology, although the patient has been on Xarelto for many years, patient did not have failure of therapy, his presentation was not a presentation of pulmonary embolism as much as a presentation of right lower lobe consolidation and pneumonia not to mention the patient had elevated pro calcitonin level. Pulmonary-snider it doesn't better whether the patient is on Xarelto or eliquis, as long as patient will be compliant with her therapy and could afford it and the dose adjusted to his renal status. Nonetheless the patient is doing well clinically, and he could be considered for discharge on oral antibiotics over the next 24 hours. WBC count today is 11.1 hemoglobin is 11.7 and electrolytes are normal however his potassium is 5.6 and renal profile showed a BUN of 44 creatinine 2.86, improved from 3.29 yesterday. Pro- calcitonin level was elevated at 0.5 to yesterday Objective - Vital Signs Vital signs: Vital Signs Temp 97.9 F 11/26/21 08:38 Pulse 107 H 11/26/21 08:38 Resp 18 11/26/21 08:38 BP 153/77 11/26/21 08:38 Pulse Ox 97 11/26/21 08:38 FiO2 Intake & Output 11/25/21 11/26/21 11/26/21 18:59 06:59 18:59 Intake Total 589.302 100 Balance 589.302 100 Weight 128.7 kg Intake: IV 90 10 Invasive Line 1 20 Invasive Line 2 20 10 cefTRIAXone 2 gm In 50 Sodium Chloride 0.9% 50 ml @ 100 mls/hr IVPB ONCE [facility] Rx#:[id number] Intake, IV Titration 259.302 Amount Heparin Sod,Pork in 0.45% 259.302 NaCl 25,000 unit In 0.45 % NaCl 1 250ml.bag @ 17. 365 UNITS/KG/HR 23 mls/hr IV .[id number] [facility] Rx#: [id number] Oral 240 90 Other: Voiding Method Bedside Commode # Voids 2 - Exam Physical Exam: Revealed a 61-year-old male in no distress. On room air. Head: Atraumatic, normocephalic. HEENT:[Neck is supple.] [No neck masses.] [No thyromegaly.] [No JVD.] Chest: [Clear throughout, no crackles, no rhonchi, no wheezes.] Cardiac Exam: [Normal S1 and S2, no S3 gallop, no murmur.] Abdomen: [Soft, nontender, no megaly, no rebound, no guarding, normal bowel sounds.] Extremities: [No clubbing, no edema, no cyanosis.] Neurological Exam: [No focal neurologic deficit.] Alert oriented 3. Psychiatric: Normal mood affect and normal mental status examination. Skin: No rashes. - Labs CBC & Chem 7: 11/25/21 05:24 11/25/21 05:24 Labs: Abnormal Lab Results - Last 24 Hours (Table) 11/25/21 Range/Units 10:54 Procalcitonin 0.52 H (0.02-0.09) ng/mL Microbiology - Last 24 Hours (Table) 11/24/21 14:30 Blood Culture - Preliminary Blood No Growth after 24 hours 11/24/21 14:08 Blood Culture - Preliminary Blood No Growth after 24 hours Assessment and Plan Assessment: Impression: Acute community-acquired pneumonia, with elevated pro calcitonin level, again strongly doubt acute pulmonary embolism and doubt pulmonary infarction Right lower lobe consolidation and right sided parapneumonic pleural effusion, small, not large enough to consider thoracentesis. History of DVT, negative Doppler on this admission. Acute on chronic kidney injury, patient is being followed by nephrology on outpatient basis. Not a candidate for CT angiogram of the chest. Leukocytosis secondary to pneumonia Chronic atrial fibrillation Benign essential hypertension Dyslipidemia Recommendation: Continue antibiotics/Rocephin and Zithromax Continue/resume eliquis VQ scan is basically nondiagnostic of pulmonary embolism. Resume home meds. Consider discharge planning in the next 24 hours on oral antibiotics. We'll continue to follow. Time with Patient: Less than 30
[2021-11-26 12:28] LABS: Calcium 9.1 mg/dL (8.4-10.2)
--- NOTE | 2021-11-26 13:10 | CDI ---
Documentation Clarification Form Date: 11/26/2021 12:53:01 PM From: Marina Dinh RN CCDS Admit Date: 11/24/2021 05:00:00 PM Patient Name: Farhat Henson Visit Number: [id number] Discharge Date: ATTENTION: The Clinical Documentation Specialists (CDI) and [facility] Coding Staff appreciate your assistance in clarifying documentation. Please respond to the clarification below the line at the bottom and electronically sign. The CDI & [facility] Coding staff will review the response and follow-up if needed. Please note: Queries are made part of the Legal Health Record. If you have any questions, please contact the author of this message via ITS. Dr. Jonh Sears Your patient has the documented diagnosis of non-ischemic cardiomyopathy, 11/26, Cardiology progress note. Additional information is requested. History/Risk Factors: 61-year-old male presents to the ED with shortness of breath, productive cough, fevers and chills for a week a home. Medical history Atrial flutter, heart failure and HTN. 11/24, H&P. Clinical Indicators: VS/Pulse OX: 11/24 B/P 128/85; HR 100; Temp 98.9F Oral; RR 24; SpO2 97% room air Echocardiogram Results: 11/25 LV size is normal with normal wall thickness there is inferobasal hypokinesia EF 50%. There is moderate pulmonary hypertension. Mild to moderate tricuspid regurgitation and mild mitral regurgitation. Chest X Ray: 11/24 Unchanged opacity along the lateral aspect of the right lung base which may represent pneumonia. Treatment: 11/24 Lasix 40mg PO daily; Toprol XL 100mg PO daily. In your professional opinion, can you please clarify the [acuity and type] of CHF if known? [ ] Chronic Diastolic Heart Failure (preserved EF) [ ] Other, please specify [ ] Unable to determine Pt admitted with pneumonia - if CHF is not in my note, DO NOT ask for typem of CHF (Template Last Revised: June 2020) MTDD
--- NOTE | 2021-11-26 18:13 | PN ---
PROGRESS NOTE DATE OF SERVICE: 11/25/2021 CHIEF COMPLAINT: Shortness of breath, cough, pneumonitis and possible pulmonary embolism. HISTORY OF PRESENT ILLNESS: This gentleman is doing well. He has not run a fever and he has not had any significant shortness of breath. The patient is not coughing up any blood. There is a question as to whether or not he has a pulmonary embolism. Diagnostic studies are not clear. Pulmonology and Vascular Surgery feel that he probably does not have one. PHYSICAL EXAMINATION: Vital signs are normal. He is afebrile. Chest demonstrates decreased breath sounds and there are only occasional rales and rhonchi. Cardiac exam is normal. Abdomen is protuberant, soft and nontender. IMPRESSION: 1. Right lower lobe pneumonitis. 2. Possible right lower lobe pulmonary embolism. PLAN: Progress activity and probably home tomorrow if he remains stable. MMODL / IJN: [id number] /
--- NOTE | 2021-11-26 21:30 | DS ---
DISCHARGE SUMMARY CHIEF COMPLAINT: Shortness of breath and chest pain. HISTORY OF PRESENT ILLNESS AND PHYSICAL EXAMINATION: Details of this man's history and physical can be found in the initial workup. COURSE IN THE HOSPITAL: After admission he was placed on bedrest, started on intravenous fluids, and initially was evaluated as a possible pulmonary embolism to the right lower lobe. It was subsequently determined that it was more likely that this represented pneumonitis. Either way, he responded to treatment and had no further problems with pain, shortness of breath, cough, fever, chills, etc. It was felt that he could be discharged home on November 26. He will go home on his usual activity and he will be discharged on Levaquin 500 mg once a day as well as Eliquis 5 mg twice a day. He will be followed up in the office in several days. FINAL DIAGNOSIS: 1. Right lower lobe pneumonitis. 2. Possible right lower lobe pulmonary embolism. 3. Essential hypertension. 4. Hyperlipidemia. OPERATIONS: None. CONSULTATIONS: 1. Pulmonology. 2. Vascular Surgery. 3. Cardiology. He is improved. MMODL / JUWANN: [id number] /
[2021-11-27] MEDS ORDERED: CEFDINIR 300 MG CAP PO SCH (09:00)
--- NOTE | 2021-11-29 14:17 | CDI ---
Documentation Clarification Form Date: 11/29/2021 01:39:13 PM From: Marina Dinh RN CCDS Admit Date: 11/24/2021 05:00:00 PM Patient Name: Farhat Henson Visit Number: [id number] Discharge Date: 11/26/2021 02:47:00 PM ATTENTION: The Clinical Documentation Specialists (CDI) and [facility] Coding Staff appreciate your assistance in clarifying documentation. Please respond to the clarification below the line at the bottom and electronically sign. The CDI & [facility] Coding staff will review the response and follow-up if needed. Please note: Queries are made part of the Legal Health Record. If you have any questions, please contact the author of this message via ITS. Dr. Ryan Roman Conflicting documentation has been found in the medical record. As attending physician, please provide clarification. Possible pulmonary embolism to the right lower lobe. It was subsequently determined that it was more likely that this represented pneumonia, Discharge summary, 11/26. Possible right lower lobe pulmonary embolism. Discharge summary, 11/26. History/Risk Factors: 61-year-old male presents to the ED with shortness of breath, productive cough, fevers and chills at home for the last week. Was in ED a week ago diagnosed with Pneumonia sent home with Levaquin 500mg po daily. History of DVT on Xeralto, patient is compliant with his blood thinning medication. Dvt, Atrial fib and sleep apnea. 11/24, H&P Clinical Indicators: Pulmonary progress note 11/26: Acute community acquired pneumonia, with elevated procalcitonin level, again strongly doubt acute pulmonary embolism and doubt pulmonary infarction. His presentation was not a presentation of pulmonary embolism as much as a presentation of right lower lobe consolidation and pneumonia not to mention the patient had an elevated pro calcitonin level. He was changed to Eliquis by Cardiology, although the patient has been on Xarelto for many years. CXR 11/24: Unchanged opacity along the lateal aspect of the right lung base which may represent pneumonia. CT Chest wo 11/24: Peripheral wedge shaped regions of consolidation / ground glass densities within the right middle and lower lobes most consistent of pulmonary infarcts . Small right pleural effusion Venous doppler 11/24: No evidence of dvt of either lower extremity NM pul vent and perfuse 11/25: Intermediate probability for pulmonary embolus LABS: 11/24 Wbc 13.6; Neutrophils 10.8; 11/25 D-dimer 8.3; Procalcitonin 0.52 VSS: 11/24 B/P 128/85; HR 100; Temp 98.9 F Oral ; RR 24; SpO2 97% room air Treatment: 11/24 Heparin 10,000 unit IV x 1; 11/24 Heparin 25,000 unit 250mls/hr D/Cd 11/25; 11/25 Eliquis 5mg PO BID. Please clarify which diagnosis is most appropriate: [ ] Pulmonary embolism ruled in [ ] Pulmonary embolism ruled out [ ] Other (please specify) [ ] Unable to determine (Template Last Revised: July 2020) MTDD
--- NOTE | 2021-12-03 05:41 | MISC ---
MISCELLANOUS REPORT Pulmonary embolism, ruled out. MMODL / IJN: [id number] /
== END 2021-11-26 14:47 | disposition home or self-care (01) | DRG 194 ==
LOC: EC 13:03 → 3SCARD 17:00
PROVIDERS: ADMIT Family Medicine; ATTEND Family Medicine
DX: J18.9 Pneumonia, unspecified organism (principal); I13.0 Hypertensive heart and chronic kidney disease with heart failure and stage 1 through stage 4 chronic kidney disease, or unspecified chronic kidney disease; N17.9 Acute kidney failure, unspecified; I48.20 Chronic atrial fibrillation, unspecified; I42.8 Other cardiomyopathies; I48.4 Atypical atrial flutter; J44.0 Chronic obstructive pulmonary disease with (acute) lower respiratory infection; N18.9 Chronic kidney disease, unspecified; I50.9 Heart failure, unspecified; D72.829 Elevated white blood cell count, unspecified; Z20.822 Contact with and (suspected) exposure to COVID-19; E87.5 Hyperkalemia; E66.9 Obesity, unspecified; Z68.37 Body mass index [BMI] 37.0-37.9, adult; Z96.652 Presence of left artificial knee joint; I27.20 Pulmonary hypertension, unspecified; I08.1 Rheumatic disorders of both mitral and tricuspid valves; Z95.828 Presence of other vascular implants and grafts; E78.5 Hyperlipidemia, unspecified; F41.9 Anxiety disorder, unspecified; G47.33 Obstructive sleep apnea (adult) (pediatric); K21.9 Gastro-esophageal reflux disease without esophagitis; M10.9 Gout, unspecified; Z79.01 Long term (current) use of anticoagulants; Z98.890 Other specified postprocedural states; Z79.899 Other long term (current) drug therapy; Z79.891 Long term (current) use of opiate analgesic; Z86.718 Personal history of other venous thrombosis and embolism; Z87.891 Personal history of nicotine dependence; Z88.5 Allergy status to narcotic agent; Z87.01 Personal history of pneumonia (recurrent)
CPT/HCPCS: 36415; 71046; 71250; 78582; 80048; 80053; 83605; 83735; 84145; 84484; 85025; 85379; 85610; 85730; 87040; 87502; 87635; 93005; 93306; 93970; 96361; 96365; 96366; 96368; 99291

== ENCOUNTER → 2022-05-19 | Outpatient (CLI) | payer MEDICARE, OTHER ==
[2022-05-19 23:52] LABS: Amylase 110 U/L (23-121); Lipase 51 U/L (14-60)
== END ==
LOC: LABWHC1 16:19
PROVIDERS: ATTEND Family Medicine
DX: R10.9 Unspecified abdominal pain (principal); K21.9 Gastro-esophageal reflux disease without esophagitis
CPT/HCPCS: 36415; 82150; 83690; 86301

== ENCOUNTER → 2022-06-05 | Outpatient (CLI) | payer MEDICARE, OTHER ==
[2022-06-05 18:20] LABS: Basophils # (A) 0.05 X 10*3/uL (0.00-0.10); Basophils % (A) 0.7 %; Eosinophils # (A) 0.71 X 10*3/uL (0.04-0.35); Eosinophils % (A) 9.6 %; HCT 53.4 % (39.6-50.0); HGB 16.4 g/dL (13.0-17.0); Immature Grans, Automated 0.5 %; Lymphocytes # (A) 1.71 X 10*3/uL (0.90-5.00); MCH 29.8 pg (27.0-32.0); MCHC 30.7 g/dL (32.0-37.0); MCV 96.9 fL (80.0-97.0); Mean Platelet Volume 10.7 fL (9.5-12.2); Monocytes # (A) 0.72 X 10*3/uL (0.20-1.00); Monocytes % (A) 9.7 %; NRBC Per 100 WBC 0 /100 WBCS (0.0-0.0); Neutrophils % (A) 56.5 %; Platelet Count 200 X 10*3/uL (140-440); RBC 5.51 X 10*6/uL (4.40-5.60); RDW 14.9 % (11.5-14.5); WBC 7.43 X 10*3/uL (4.50-10.00)
[2022-06-05 18:50] LABS: Albumin 4.1 g/dL (3.8-4.9)
[2022-06-05 19:09] LABS: % Iron Saturation 37.36 (15.00-50.00); African American GFR (CKD) 28.6 (60.0-200.0); Anion Gap 13.3 mmol/L (10.00-18.00); BUN/Creat Ratio 9.93 Ratio (12.00-20.00); Blood Urea Nitrogen 26.8 mg/dL (9.0-27.0); Calcium 10.1 mg/dL (8.7-10.3); Carbon Dioxide 26.7 mmol/L (20.0-27.5); Magnesium 2.2 mg/dL (1.5-2.4); Non-African American GFR(CKD) 24.7 (60.0-200.0); Phosphorus 3.5 mg/dL (2.4-5.1); Potassium 5.7 mmol/L (3.5-5.5); Uric Acid 13.2 mg/dL (3.7-8.7)
== END | disposition home or self-care (01) ==
LOC: LABWHC1 11:25
PROVIDERS: ATTEND Nurse Practitioner Family
DX: N25.81 Secondary hyperparathyroidism of renal origin (principal); N18.32 Chronic kidney disease, stage 3b; D63.1 Anemia in chronic kidney disease; E55.9 Vitamin D deficiency, unspecified; M10.9 Gout, unspecified; N39.0 Urinary tract infection, site not specified; R80.9 Proteinuria, unspecified
CPT/HCPCS: 36415; 80048; 82040; 82306; 82728; 83540; 83550; 83735; 83970; 84100; 84550; 85025

== ENCOUNTER → 2022-09-03 | Outpatient (CLI) | payer MEDICARE, OTHER ==
[2022-09-03 20:01] LABS: Appearance,Urine Clear (Clear); Bilirubin,Urine Negative (Negative); Blood,Urine Negative (Negative); Color,Urine Yellow (Yellow); Ketones,Urine Negative (Negative); Nitrite,Urine Negative (Negative); PH, Urine 5.5 (5.0-8.0); Specific Gravity,Urine 1.015 (1.001-1.030)
[2022-09-03 20:03] LABS: Basophils # (A) 0.04 X 10*3/uL (0.00-0.10); Basophils % (A) 0.6 %; Eosinophils # (A) 0.33 X 10*3/uL (0.04-0.35); Eosinophils % (A) 4.9 %; HGB 14.8 g/dL (13.0-17.0); Immature Grans, Automated 0.4 %; Lymphocytes # (A) 1.03 X 10*3/uL (0.90-5.00); Lymphocytes % (A) 15.4 %; MCH 31.6 pg (27.0-32.0); MCHC 32.2 g/dL (32.0-37.0); MCV 98.3 fL (80.0-97.0); Mean Platelet Volume 10.4 fL (9.5-12.2); Monocytes # (A) 0.63 X 10*3/uL (0.20-1.00); Monocytes % (A) 9.4 %; NRBC Per 100 WBC 0 /100 WBCS (0.0-0.0); Neutrophils # (A) 4.62 X 10*3/uL (1.80-7.70); Neutrophils % (A) 69.3 %; Platelet Count 222 X 10*3/uL (140-440); RBC 4.68 X 10*6/uL (4.40-5.60); RDW 17.3 % (11.5-14.5); WBC 6.68 X 10*3/uL (4.50-10.00)
[2022-09-03 20:07] LABS: Bacteria,Urine None Seen /HPF (None Seen)
[2022-09-03 22:12] LABS: Albumin 4.2 g/dL (3.8-4.9)
[2022-09-03 22:44] LABS: % Iron Saturation 30.57 (15.00-50.00); African American GFR (CKD) 34.4 (60.0-200.0); Anion Gap 16.1 mmol/L (10.00-18.00); BUN/Creat Ratio 12.67 Ratio (12.00-20.00); Blood Urea Nitrogen 29.4 mg/dL (9.0-27.0); Calcium 10.1 mg/dL (8.7-10.3); Carbon Dioxide 19.7 mmol/L (20.0-27.5); Magnesium 2.4 mg/dL (1.5-2.4); Non-African American GFR(CKD) 29.7 (60.0-200.0); Phosphorus 2.8 mg/dL (2.4-5.1); Potassium 4.9 mmol/L (3.5-5.5); Uric Acid 11.8 mg/dL (3.7-8.7)
== END | disposition home or self-care (01) ==
LOC: LABWHC1 13:19
PROVIDERS: ATTEND Internal Medicine Nephrology
DX: N25.81 Secondary hyperparathyroidism of renal origin (principal); E79.0 Hyperuricemia without signs of inflammatory arthritis and tophaceous disease; N39.0 Urinary tract infection, site not specified; N18.32 Chronic kidney disease, stage 3b; D63.1 Anemia in chronic kidney disease; R80.9 Proteinuria, unspecified
CPT/HCPCS: 36415; 80048; 81001; 82040; 82043; 82306; 82570; 82728; 83540; 83550; 83735; 83970; 84100; 84550; 85025

== ENCOUNTER → 2022-12-22 | Outpatient (CLI) | payer MEDICARE, OTHER ==
[2022-12-22 16:50] LABS: Appearance,Urine Clear (Clear); Bilirubin,Urine Negative (Negative); Blood,Urine Negative (Negative); Color,Urine Yellow; Glucose,Urine (UA) Negative (Negative); Ketones,Urine Negative (Negative); Leukocyte Esterase,Urine Negative (Negative); Nitrite,Urine Negative (Negative); PH, Urine 5.5 (5.0-8.0); Protein,Urine 2+ (Negative); RBC,Urine 2 /hpf (0-5); Specific Gravity,Urine 1.009 (1.001-1.035); Urobilinogen,Urine <2.0 mg/dL (<2.0); WBC,Urine <1 /hpf (0-5)
[2022-12-22 21:06] LABS: Albumin 4.5 d/dL (3.8-4.9); BUN/Creat Ratio 13.91 Ratio (12.00-20.00); Calcium 10.1 mg/dL (8.7-10.3); Carbon Dioxide 19.7 mmol/L (21.6-31.8); Chloride 103 mmol/L (96-109); Glucose 98 mg/dL (70-110); Iron 66 UG/DL (65-175); Magnesium 2.3 mg/dL (1.5-2.4); Phosphorus 2.8 mg/dL (2.4-5.1); Potassium 5.8 mmol/L (3.5-5.5); Sodium 136 mmol/L (135-145); Total Iron Binding Capacity 300 UG/DL (228-460)
[2022-12-22 21:30] LABS: HCT 50.3 % (39.6-50.0); HGB 16.9 d/dL (13.0-17.0); MCH 32.3 pg (27.0-32.0); MCHC 33.6 d/dL (32.0-37.0); Mean Platelet Volume 10.6 FL (9.5-12.2); NRBC Per 100 WBC 0 X 10*3/uL (0.00-0.01); Platelet Count 181 X 10*3/uL (140-440); RBC 5.24 X 10*6/uL (4.40-5.60); RDW 14.1 % (11.5-14.5); WBC 7.73 X 10*3/uL (4.50-10.00)
[2022-12-22 21:31] LABS: Basophils # (A) 0.04 X 10*3/uL (0.00-0.10); Basophils % (A) 0.5 %; Eosinophils # (A) 0.36 X 10*3/uL (0.04-0.35); Eosinophils % (A) 4.7 %; Lymphocytes # (A) 1.86 X 10*3/uL (0.90-5.00); Lymphocytes % (A) 24.1 %; Monocytes # (A) 0.78 X 10*3/uL (0.20-1.00); Monocytes % (A) 10.1 %; Neutrophils # (A) 4.66 X 10*3/uL (1.80-7.70); Neutrophils % (A) 60.2 %
[2022-12-22 21:44] LABS: Urine Creatinine 80.7 mg/dL (39.0-259.0)
== END | disposition home or self-care (01) ==
LOC: LABWHC1 15:58
PROVIDERS: ATTEND Nurse Practitioner Family
DX: N18.32 Chronic kidney disease, stage 3b (principal); M10.9 Gout, unspecified; N25.81 Secondary hyperparathyroidism of renal origin; D64.9 Anemia, unspecified; E55.9 Vitamin D deficiency, unspecified; R80.9 Proteinuria, unspecified; Z94.0 Kidney transplant status
CPT/HCPCS: 36415; 80048; 81001; 82040; 82043; 82306; 82570; 82728; 83540; 83550; 83735; 83970; 84100; 85025

== ENCOUNTER → 2022-12-30 | Outpatient (CLI) | payer MEDICARE, OTHER ==
[2022-12-30 20:41] LABS: BUN/Creat Ratio 12.88 Ratio (12.00-20.00); Blood Urea Nitrogen 32.2 mg/dL (9.0-27.0); Calcium 9.9 mg/dL (8.7-10.3); Carbon Dioxide 25.1 mmol/L (21.6-31.8); Chloride 104 mmol/L (96-109); Glucose 92 mg/dL (70-110); Potassium 5.4 mmol/L (3.5-5.5); Sodium 139 mmol/L (135-145)
== END | disposition home or self-care (01) ==
LOC: LABWHC1 13:21
PROVIDERS: ATTEND Nurse Practitioner Family
DX: N18.32 Chronic kidney disease, stage 3b (principal)
CPT/HCPCS: 36415; 80048

== ENCOUNTER → 2023-04-13 | Outpatient (CLI) | payer MEDICARE, OTHER ==
[2023-04-13 18:55] LABS: Basophils # (A) 0.04 X 10*3/uL (0.00-0.10); Basophils % (A) 0.5 %; Eosinophils # (A) 0.49 X 10*3/uL (0.04-0.35); Eosinophils % (A) 6.2 %; HCT 48.3 % (39.6-50.0); HGB 15.5 g/dL (13.0-17.0); Lymphocytes # (A) 1.72 X 10*3/uL (0.90-5.00); Lymphocytes % (A) 21.6 %; MCH 31.6 pg (27.0-32.0); MCHC 32.1 g/dL (32.0-37.0); MCV 98.4 FL (80.0-97.0); Mean Platelet Volume 10.4 FL (9.5-12.2); Monocytes # (A) 0.73 X 10*3/uL (0.20-1.00); Monocytes % (A) 9.2 %; NRBC Per 100 WBC 0 X 10*3/uL (0.00-0.01); Neutrophils # (A) 4.94 X 10*3/uL (1.80-7.70); Neutrophils % (A) 62.1 %; Platelet Count 195 X 10*3/uL (140-440); RBC 4.91 X 10*6/uL (4.40-5.60); RDW 14.4 % (11.5-14.5); WBC 7.95 X 10*3/uL (4.50-10.00)
[2023-04-13 19:09] LABS: % Iron Saturation 18.37 (15.00-50.00); Iron 52 UG/DL (65-175); Total Iron Binding Capacity 283 UG/DL (228-460); Uric Acid 10.6 mg/dL (3.7-8.7)
[2023-04-13 19:27] LABS: Albumin 4.4 g/dL (3.8-4.9); BUN/Creat Ratio 14.12 Ratio (12.00-20.00); Blood Urea Nitrogen 36.7 mg/dL (9.0-27.0); Calcium 9.8 mg/dL (8.7-10.3); Carbon Dioxide 19.6 mmol/L (21.6-31.8); Chloride 103 mmol/L (96-109); Glucose 84 mg/dL (70-110); Potassium 6.2 mmol/L (3.5-5.5); Sodium 135 mmol/L (135-145)
[2023-04-13 21:15] LABS: Appearance,Urine Clear (Clear); Bilirubin,Urine Negative (Negative); Blood,Urine Negative (Negative); Color,Urine Yellow (Yellow); Ketones,Urine Negative (Negative); Nitrite,Urine Negative (Negative); PH, Urine 5.5; Specific Gravity,Urine 1.011 (1.001-1.030)
[2023-04-13 21:21] LABS: Bacteria,Urine None Seen (None Seen)
== END | disposition home or self-care (01) ==
LOC: LABWHC1 12:16
PROVIDERS: ATTEND Nurse Practitioner Family
DX: N18.4 Chronic kidney disease, stage 4 (severe) (principal); D63.1 Anemia in chronic kidney disease; E79.0 Hyperuricemia without signs of inflammatory arthritis and tophaceous disease; N39.0 Urinary tract infection, site not specified; R80.9 Proteinuria, unspecified
CPT/HCPCS: 36415; 80048; 81001; 82040; 82043; 82570; 82728; 83540; 83550; 83970; 84550; 85025

== ENCOUNTER → 2023-05-06 | Outpatient (CLI) | payer MEDICARE, OTHER ==
--- NOTE | 2023-05-07 22:08 | US ---
EXAMINATION TYPE: US kidneys/renal and bladder DATE OF EXAM: 05/06/2023 COMPARISON: CT 2019, ultrasound 07/17/2014 CLINICAL INDICATION: Male, 62 years old with history of N18.4 CHRONIC KIDNEY DISEASE, STAGE 4; EXAM MEASUREMENTS: Right Kidney: 11.1 x 7.1 x 6.1 cm Left Kidney: 9.5 x 5.3 x 6.4 cm Post Void Residual Volume: 68 mL Right Kidney: Simple appearing Cyst noted 3.5 x 3.8 x 3.1 cm Left Kidney: Simple appearing Cyst noted 3.5 x 2.5 x 2.7 cm Bladder: Anechoic Bilateral Jets seen: No Normal Post Void Residual: No There is no evidence for hydronephrosis at this point in time. No nephrolithiasis is seen. No wilbert s are identified. The urinary bladder is anechoic. Bilateral ureteral jets are seen. Suboptimal study due to excessive overlying bowel gas IMPRESSION: Bilateral renal cysts
== END | disposition home or self-care (01) ==
LOC: RADUSWWP 14:24
PROVIDERS: ATTEND Internal Medicine Nephrology
DX: N18.4 Chronic kidney disease, stage 4 (severe) (principal); N28.1 Cyst of kidney, acquired
CPT/HCPCS: 76770

== ENCOUNTER → 2023-05-18 | Outpatient (CLI) | payer MEDICARE, OTHER ==
[2023-05-18 13:45] LABS: Creatinine,Urine Random 130.4 mg/dL; Protein/Creatinine Ratio,Urine 1.173
[2023-05-18 15:59] LABS: Basophils # (A) 0.05 X 10*3/uL (0.00-0.10); Basophils % (A) 0.7 %; Eosinophils # (A) 0.34 X 10*3/uL (0.04-0.35); Eosinophils % (A) 4.7 %; HCT 49.6 % (39.6-50.0); Lymphocytes # (A) 1.51 X 10*3/uL (0.90-5.00); Lymphocytes % (A) 20.7 %; MCH 31.1 pg (27.0-32.0); MCHC 32.3 g/dL (32.0-37.0); MCV 96.5 FL (80.0-97.0); Mean Platelet Volume 10.4 FL (9.5-12.2); Monocytes # (A) 0.62 X 10*3/uL (0.20-1.00); Monocytes % (A) 8.5 %; NRBC Per 100 WBC 0 X 10*3/uL (0.00-0.01); Neutrophils # (A) 4.75 X 10*3/uL (1.80-7.70); Platelet Count 175 X 10*3/uL (140-440); RBC 5.14 X 10*6/uL (4.40-5.60); RDW 13.5 % (11.5-14.5)
[2023-05-18 16:15] LABS: Appearance,Urine Clear (Clear); Bilirubin,Urine Negative (Negative); Blood,Urine Negative (Negative); Color,Urine Yellow (Yellow); Ketones,Urine Negative (Negative); Nitrite,Urine Negative (Negative); PH, Urine 5.5; Specific Gravity,Urine 1.013 (1.001-1.030)
[2023-05-18 16:24] LABS: Bacteria,Urine None Seen (None Seen)
[2023-05-18 16:34] LABS: % Iron Saturation 20.34 (15.00-50.00); Albumin 4.4 g/dL (3.8-4.9); BUN/Creat Ratio 14.09 Ratio (12.00-20.00); Blood Urea Nitrogen 32.4 mg/dL (9.0-27.0); Calcium 9.8 mg/dL (8.7-10.3); Chloride 103 mmol/L (96-109); Glucose 89 mg/dL (70-110); Iron 59 UG/DL (65-175); Magnesium 2.1 mg/dL (1.5-2.4); Potassium 4.9 mmol/L (3.5-5.5); Sodium 139 mmol/L (135-145); Total Iron Binding Capacity 290 UG/DL (228-460); Uric Acid 9.8 mg/dL (3.7-8.7)
== END | disposition home or self-care (01) ==
LOC: LABWHC1 11:31
PROVIDERS: ATTEND Internal Medicine Nephrology
DX: N18.4 Chronic kidney disease, stage 4 (severe) (principal)
CPT/HCPCS: 36415; 80048; 81001; 82040; 82306; 82570; 82728; 83540; 83550; 83735; 83970; 84100; 84156; 84550; 85025

== ENCOUNTER → 2023-08-12 | Outpatient (CLI) | payer MEDICARE, OTHER ==
[2023-08-12 16:29] LABS: Protein/Creatinine Ratio,Urine 1.147
[2023-08-12 18:35] LABS: Basophils # (A) 0.05 X 10*3/uL (0.00-0.10); Basophils % (A) 0.6 %; Eosinophils # (A) 0.57 X 10*3/uL (0.04-0.35); Eosinophils % (A) 6.8 %; HCT 49.7 % (39.6-50.0); HGB 16.1 g/dL (13.0-17.0); Lymphocytes # (A) 1.88 X 10*3/uL (0.90-5.00); Lymphocytes % (A) 22.5 %; MCH 31.1 pg (27.0-32.0); MCHC 32.4 g/dL (32.0-37.0); MCV 95.9 FL (80.0-97.0); Mean Platelet Volume 10.4 FL (9.5-12.2); Monocytes # (A) 0.78 X 10*3/uL (0.20-1.00); Monocytes % (A) 9.3 %; NRBC Per 100 WBC 0 X 10*3/uL (0.00-0.01); Neutrophils # (A) 5.04 X 10*3/uL (1.80-7.70); Neutrophils % (A) 60.3 %; Platelet Count 159 X 10*3/uL (140-440); RBC 5.18 X 10*6/uL (4.40-5.60); RDW 13.5 % (11.5-14.5); WBC 8.36 X 10*3/uL (4.50-10.00)
[2023-08-12 18:37] LABS: Appearance,Urine Clear (Clear); Bilirubin,Urine Negative (Negative); Blood,Urine Negative (Negative); Color,Urine Yellow (Yellow); Ketones,Urine Negative (Negative); Nitrite,Urine Negative (Negative); PH, Urine 5.5; Specific Gravity,Urine 1.011 (1.001-1.030)
[2023-08-12 18:41] LABS: Bacteria,Urine None Seen (None Seen)
[2023-08-12 18:57] LABS: % Iron Saturation 20.34 (15.00-50.00); Albumin 4.4 g/dL (3.8-4.9); BUN/Creat Ratio 14.75 Ratio (12.00-20.00); Blood Urea Nitrogen 35.4 mg/dL (9.0-27.0); Calcium 10.2 mg/dL (8.7-10.3); Carbon Dioxide 21.8 mmol/L (21.6-31.8); Chloride 104 mmol/L (96-109); Glucose 105 mg/dL (70-110); Iron 60 UG/DL (65-175); Magnesium 2.1 mg/dL (1.5-2.4); Phosphorus 3.1 mg/dL (2.4-5.1); Potassium 4.8 mmol/L (3.5-5.5); Sodium 140 mmol/L (135-145); Total Iron Binding Capacity 295 UG/DL (228-460); Uric Acid 11.5 mg/dL (3.7-8.7)
== END | disposition home or self-care (01) ==
LOC: LABWHC1 14:38
PROVIDERS: ATTEND Internal Medicine Nephrology
DX: N18.4 Chronic kidney disease, stage 4 (severe) (principal); D63.1 Anemia in chronic kidney disease; N39.0 Urinary tract infection, site not specified; N25.81 Secondary hyperparathyroidism of renal origin; M10.9 Gout, unspecified; E55.9 Vitamin D deficiency, unspecified
CPT/HCPCS: 36415; 80048; 81001; 82040; 82306; 82570; 82728; 83540; 83550; 83735; 83970; 84100; 84156; 84550; 85025

== ENCOUNTER → 2023-11-17 | Outpatient (CLI) | payer MEDICARE, OTHER ==
[2023-11-17 11:06] LABS: Creatinine,Urine Random 147.4 mg/dL; Protein/Creatinine Ratio,Urine 1.187
[2023-11-17 15:55] LABS: Basophils # (A) 0.04 X 10*3/uL (0.00-0.10); Basophils % (A) 0.6 %; Eosinophils # (A) 0.27 X 10*3/uL (0.04-0.35); Eosinophils % (A) 3.8 %; HCT 50.3 % (39.6-50.0); HGB 16.2 g/dL (13.0-17.0); Lymphocytes # (A) 1.62 X 10*3/uL (0.90-5.00); Lymphocytes % (A) 22.6 %; MCHC 32.2 g/dL (32.0-37.0); MCV 99.2 FL (80.0-97.0); Mean Platelet Volume 11.3 FL (9.5-12.2); Monocytes # (A) 0.72 X 10*3/uL (0.20-1.00); NRBC Per 100 WBC 0 X 10*3/uL (0.00-0.01); Neutrophils # (A) 4.48 X 10*3/uL (1.80-7.70); Neutrophils % (A) 62.4 %; Platelet Count 146 X 10*3/uL (140-440); RBC 5.07 X 10*6/uL (4.40-5.60); RDW 14.4 % (11.5-14.5); WBC 7.17 X 10*3/uL (4.50-10.00)
[2023-11-17 16:31] LABS: % Iron Saturation 18.89 (15.00-50.00); Albumin 4.6 g/dL (3.8-4.9); BUN/Creat Ratio 11.93 Ratio (12.00-20.00); Blood Urea Nitrogen 33.4 mg/dL (9.0-27.0); Carbon Dioxide 18.6 mmol/L (21.6-31.8); Chloride 102 mmol/L (96-109); Glucose 112 mg/dL (70-110); Iron 58 UG/DL (65-175); Magnesium 2.3 mg/dL (1.5-2.4); Phosphorus 3.4 mg/dL (2.4-5.1); Potassium 5.2 mmol/L (3.5-5.5); Sodium 137 mmol/L (135-145); Total Iron Binding Capacity 307 UG/DL (228-460)
[2023-11-17 18:15] LABS: Free Kappa Lt Chain Qnt, Serum 5.38 mg/dL (0.33-1.94); Free Lambda Lt Chain Qnt, Seru 4.68 mg/dL (0.57-2.63)
[2023-11-18 13:18] LABS: Appearance,Urine Clear (Clear); Bilirubin,Urine Negative (Negative); Blood,Urine Negative (Negative); Color,Urine Yellow (Yellow); Ketones,Urine Negative (Negative); Nitrite,Urine Negative (Negative); Specific Gravity,Urine 1.015 (1.001-1.030)
[2023-11-18 13:32] LABS: Bacteria,Urine None Seen (None Seen)
== END | disposition home or self-care (01) ==
LOC: LABWHC1 09:49
PROVIDERS: ATTEND Family Medicine
DX: N18.4 Chronic kidney disease, stage 4 (severe) (principal); D63.1 Anemia in chronic kidney disease; N25.81 Secondary hyperparathyroidism of renal origin; M10.9 Gout, unspecified; N39.0 Urinary tract infection, site not specified; E55.9 Vitamin D deficiency, unspecified; R80.9 Proteinuria, unspecified
CPT/HCPCS: 36415; 80048; 81001; 82040; 82306; 82570; 82728; 83540; 83550; 83735; 83883; 83970; 84100; 84156; 84550; 85025; 86334; 86335

== ENCOUNTER → 2024-09-08 | Outpatient (CLI) | payer MEDICARE, OTHER ==
[2024-09-08 18:44] LABS: Basophils # (A) 0.02 X 10*3/uL (0.00-0.10); Basophils % (A) 0.1 %; Eosinophils # (A) 0 X 10*3/uL (0.04-0.35); Eosinophils % (A) 0 %; HCT 51.1 % (39.6-50.0); HGB 17.6 g/dL (13.0-17.0); Lymphocytes # (A) 1.11 X 10*3/uL (0.90-5.00); MCH 33.3 pg (27.0-32.0); MCHC 34.4 g/dL (32.0-37.0); MCV 96.8 FL (80.0-97.0); Monocytes % (A) 6.5 %; NRBC Per 100 WBC 0 X 10*3/uL (0.00-0.01); Neutrophils # (A) 16.07 X 10*3/uL (1.80-7.70); Neutrophils % (A) 86.9 %; Platelet Count 137 X 10*3/uL (140-440); RBC 5.28 X 10*6/uL (4.40-5.60)
[2024-09-08 18:52] LABS: Magnesium 2.1 mg/dL (1.5-2.4); Phosphorus 3.8 mg/dL (2.4-5.1); Uric Acid 13.2 mg/dL (3.7-8.7)
[2024-09-08 19:03] LABS: Albumin 4.5 g/dL (3.8-4.9); Blood Urea Nitrogen 53.2 mg/dL (9.0-27.0); Calcium 10.4 mg/dL (8.7-10.3); Chloride 104 mmol/L (96-109); Glucose 82 mg/dL (70-110); Potassium 4.7 mmol/L (3.5-5.5); Sodium 137 mmol/L (135-145)
== END | disposition home or self-care (01) ==
LOC: LABWHC1 13:21
PROVIDERS: ATTEND Internal Medicine Nephrology
DX: E55.9 Vitamin D deficiency, unspecified (principal); N18.4 Chronic kidney disease, stage 4 (severe); D63.1 Anemia in chronic kidney disease; N25.81 Secondary hyperparathyroidism of renal origin; M10.9 Gout, unspecified; N39.0 Urinary tract infection, site not specified
CPT/HCPCS: 36415; 80048; 82040; 82306; 83735; 83970; 84100; 84550; 85025